=== PATIENT | male | born 1945 | race Caucasian/White ===

== ENCOUNTER 2018-02-07 18:30 | Observation (INO) | payer OTHER ==
[2018-02-07] MEDS ORDERED: ALBUTEROL 2.5 MG/3 ML NEB SOL ONE (19:16)
[2018-02-07] MEDS ORDERED: FUROSEMIDE 100 MG/10 ML VIAL IV ONE (19:16)
[2018-02-07 19:39] LABS: Absolute Lymphocytes (CBC) 0.6 K/uL (0.7-4.9); Absolute Monocytes 0.6 K/uL (0.1-1.3); Absolute Neutrophil 6.5 K/uL (1.8-8.0); Basophils % 0.3 % (0-1.3); Eosinophils % 2.5 % (0-4.4); Hematocrit 34.5 % (39.6-49.0); Lymphocytes % 7.3 % (15.3-44.8); MCH 26.7 pg (27.0-35.0); MCV 81.3 fL (80-100); MPV 8.6 fL (7.6-11.3); RBC Red Blood Cell Count 4.25 M/uL (4.33-5.43)
[2018-02-07 19:50] LABS: Protime INR 1.11
[2018-02-07 19:55] LABS: Bicarbonate 25 mEq/L (21-31); Glucose Level 120 mg/dL (65-120); Potassium 4.1 mEq/L (3.6-5.0); Sodium Level 135 mEq/L (135-145)
[2018-02-07 20:02] LABS: ALT/SGPT 18 IU/L (10-60); AST/SGOT 20 IU/L (10-42); Albumin 3.9 g/dL (3.2-5.5); Alkaline Phosphatase 823 IU/L (42-121); BUN Blood Urea Nitrogen 14 mg/dL (6-20); Bilirubin Direct 0.2 mg/dL (0-0.2); Bilirubin Total 0.8 mg/dL (0.3-1.2); Protein, Total 7.7 g/dL (6.0-8.3)
--- NOTE | 2018-02-07 20:29 | RAD REPORT ---
EXAM DESCRIPTION: VAS - Extrem Venous W Compress Richard - 02/07/2018 8:18 pm CLINICAL HISTORY: Leg pain and swelling COMPARISON: None. TECHNIQUE: Real-time sonographic evaluation of the bilateral lower extremity deep venous systems was performed. FINDINGS: Normal compressibility, flow augmentation, phasic flow and spontaneous flow are identified in the left and right lower extremity deep venous systems. No intraluminal filling defects seen. IMPRESSION: No DVT in either lower extremity.
--- NOTE | 2018-02-07 20:52 | EDPHYS ---
Physician Documentation [facility] Name: Frank Abernathy Age: 72 yrs Sex: Male : 1945 Arrival Date: 02/07/2018 Time: 18:33 Bed 5 Private MD: Unknown, Unknown ED Physician Antione Contreras HPI: 02/07 20:43 This 72 yrs old Male presents to ER via Wheelchair with complaints of Chest jr8 Pain, Shortness Of Breath. 20:43 Patient stated that he has had chest tightness that started yesterday. Worsening of jr8 shortness of breath and dyspnea on exertion. Stated that he has also noted bilateral erythema to lower legs with tenderness . Severity of symptoms: At their worst the symptoms were moderate in the emergency department the symptoms are unchanged. The patient has not experienced similar symptoms in the past. The patient has not recently seen a physician. Historical: - Allergies: 18:40 Amoxicillin; sv 18:40 Zithromax; sv - Home Meds: 19:31 amlodipine 10 mg tab 1 tab once daily [Active]; Ginna Aspirin 81mg Oral [Active]; ak1 carvedilol 25 mg Oral tab 1 tab three times a day [Active]; clopidogrel 75 mg Oral tab 1 tab once daily [Active]; lisinopril 40 mg Oral tab 1 tab once daily [Active]; fluoxetine 40 mg Oral cap 1 cap once daily [Active]; magnesium oxide 400 mg Oral cap daily [Active]; furosemide 80 mg oral tab once daily [Active]; fluticasone 50 mcg/actuation nasal spsn as needed [Active]; atorvastatin 80 mg Oral tab 1 tab once daily [Active]; montelukast 10 mg oral tab [Active]; Fluocinolone Acetonide Topical [Active]; Triamcinolone Acetonide Topical [Active]; Symbicort 160-4.5 mcg/actuation inhalation HFAA 2 puffs 2 times per day [Active]; ranitidine HCl 300 mg Oral tab 1 tab 2 times per day [Active]; - PMHx: 18:40 Anemia; CAD; Chronic Kidney Disease - Stage 3; COPD; Depression; Diabetes - NIDDM; sv GERD; Hyperlipidemia; Hypertension; lymphedema; Myocardial infarction; Prostate Cancer; Sleep Apnea; - Immunization history:: Adult Immunizations up to date. - Social history:: Smoking status: Patient/guardian denies using tobacco. - Ebola Screening: : No symptoms or risks identified at this time. ROS: 20:43 Eyes: Negative for injury, pain, redness, and discharge, ENT: Negative for injury, jr8 pain, and discharge, Neck: Negative for injury, pain, and swelling, Abdomen/GI: Negative for abdominal pain, nausea, vomiting, diarrhea, and constipation, Back: Negative for injury and pain, MS/Extremity: Negative for injury and deformity, Neuro: Negative for headache, weakness, numbness, tingling, and seizure. 20:43 Cardiovascular: Positive for chest pain, edema, Negative for orthopnea, palpitations, paroxysmal nocturnal dyspnea. 20:43 Respiratory: Positive for cough, dyspnea on exertion, shortness of breath. 20:43 Skin: Positive for erythema, of the right leg and left leg. Exam: 20:43 Eyes: Pupils equal round and reactive to light, extra-ocular motions intact. Lids and jr8 lashes normal. Conjunctiva and sclera are non-icteric and not injected. Cornea within normal limits. Periorbital areas with no swelling, redness, or edema. ENT: Nares patent. No nasal discharge, no septal abnormalities noted. Tympanic membranes are normal and external auditory canals are clear. Oropharynx with no redness, swelling, or masses, exudates, or evidence of obstruction, uvula midline. Mucous membranes moist. Neck: Trachea midline, no thyromegaly or masses palpated, and no cervical lymphadenopathy. Supple, full range of motion without nuchal rigidity, or vertebral point tenderness. No Meningismus. Cardiovascular: Regular rate and rhythm with a normal S1 and S2. No gallops, murmurs, or rubs. Normal PMI, no JVD. No pulse deficits. Abdomen/GI: Soft, non-tender, with normal bowel sounds. No distension or tympany. No guarding or rebound. No evidence of tenderness throughout. Back: No spinal tenderness. No costovertebral tenderness. Full range of motion. Neuro: Awake and alert, GCS 15, oriented to person, place, time, and situation. Cranial nerves II-XII grossly intact. Motor strength 5/5 in all extremities. Sensory grossly intact. Cerebellar exam normal. Normal gait. 20:43 Respiratory: the patient does not display signs of respiratory distress, Respirations: tachypnea, Breath sounds: rales, that are moderate, are located in both bases. 20:43 Musculoskeletal/extremity: ROM: intact in all extremities, Circulation is intact in all extremities. Sensation intact. Bilateral erythema and warmth with tenderness and swelling noted. Worse on right then left . 20:43 Skin: cellulitis, erythema/cellulitis noted to bilateral lower legs. Greater on right then left. Vital Signs: 18:40 BP 175 / 86; Pulse 99; Resp 26; Temp 99.8; Pulse Ox 91% ; Weight 129.73 kg; Height 5 sv ft. 8 in. (172.72 cm); 22:01 BP 150 / 80; Pulse 68; Resp 18; Pulse Ox 99% on R/A; tl2 22:17 BP 140 / 69; Pulse 73; Resp 18; Pulse Ox 100% on 2 lpm NC; tl2 02/08 00:01 BP 128 / 70; Pulse 65; Resp 18; Temp 98.5; Pulse Ox 98% on 2 lpm NC; tl2 02/07 18:40 Body Mass Index 43.49 (129.73 kg, 172.72 cm) sv 02/07 18:40 Pt placed on O2 \T\ 2L per NC. sv MDM: 18:45 Patient medically screened. jr8 20:43 Differential Diagnosis cellulitis, lymphedema, CHF, pneumonia, MN, DVT, PE . Data jr8 reviewed: vital signs, nurses notes, lab test result(s), EKG, radiologic studies, plain films, and as a result, I will admit patient. Data interpreted: Pulse oximetry: on 2L(s) per nasal canula, is 91 %. Interpretation: borderline. Counseling: I had a detailed discussion with the patient and/or guardian regarding: the historical points, exam findings, and any diagnostic results supporting the discharge/admit diagnosis, lab results, radiology results, the need for further work-up and treatment in the hospital. Physician consultation: Riley Cornell MD was called at 20:49, was contacted at 20:49, regarding admission, to the telemetry unit. consult, patient's condition, and will see patient. 02/07 19:03 Order name: Basic Metabolic Panel; Complete Time: 20:07 [facility] 02/07 19:03 Order name: Blood Culture Adult (2) [facility] 02/07 19:03 Order name: BNP; Complete Time: 19:59 02/07 19:03 Order name: CBC with Diff; Complete Time: 19:53 02/07 19:03 Order name: LFT's; Complete Time: 20:07 02/07 19:03 Order name: Procalcitonin; Complete Time: 20:33 02/07 19:03 Order name: Protime (+inr); Complete Time: 19:53 02/07 19:03 Order name: Troponin (emerg Dept Use Only); Complete Time: 19:59 02/07 19:03 Order name: Chest Single View XRAY; Complete Time: 23:14 02/07 19:03 Order name: US Extremity Venous W Compression Richard; Complete Time: 20:33 02/07 21:20 Order name: Urine Dipstick--Ancillary (enter results) eb 02/07 21:24 Order name: Urine Dipstick-Ancillary; Complete Time: 21:25 EDMS 02/07 18:42 Order name: EKG; Complete Time: 18:42 sv 02/07 18:42 Order name: EKG - Nurse/Tech; Complete Time: 19:12 sv 02/07 19:03 Order name: Cardiac monitoring; Complete Time: 19:12 02/07 19:03 Order name: IV Saline Lock - Large Bore; Complete Time: 19:12 02/07 19:03 Order name: Labs collected and sent; Complete Time: 19:12 02/07 19:03 Order name: O2 Per Protocol; Complete Time: 19:12 02/07 19:03 Order name: O2 Sat Monitoring; Complete Time: 19:12 02/07 19:03 Order name: Urine Dipstick-Ancillary (obtain specimen); Complete Time: 21:10 02/07 19:03 Order name: Accucheck; Complete Time: 19:30 Administered Medications: 19:30 Drug: Albuterol 2.5 mg Route: Inhalation; tl2 19:30 Drug: Lasix 60 mg Route: IVP; Site: right antecubital; 2 02/08 00:33 Follow up: Response: No adverse reaction; Marked relief of symptoms 02/07 21:09 Drug: LevaQUIN 500 mg Volume: 100 ml; Route: IVPB; Infused Over: 60 mins; Site: right tl2 antecubital; 02/08 00:33 Follow up: IV Status: Completed infusion tl2 02/07 21:10 Drug: Albuterol 2.5 mg Route: Inhalation; tl2 22:17 Drug: vancoMYCIN 1 grams Route: IVPB; Infused Over: 2 hrs; Site: right antecubital; tl2 02/08 00:33 Follow up: IV Status: Completed infusion tl2 Point of Care Testing: Blood Glucose: 02/07 19:15 Blood Glucose: 131 mg/dL; tl2 Ranges: Critical Glucose Levels:Adult <50 mg/dl or >400 mg/dl <40 mg/dl or >180 mg/dl Disposition: 02/08 07:17 Co-signature as Attending Physician, Antione Contreras MD I agree with the assessment and norma plan of care. Disposition: 02/07/18 20:50 Hospitalization ordered by Riley Cornell for Inpatient Admission. Preliminary diagnosis are Acute combined systolic (congestive) and diastolic (congestive) heart failure, Cellulitis of right lower limb, Cellulitis of left lower limb. - Bed requested for Telemetry/MedSurg (Inpatient). - Status is Inpatient Admission. tl2 - Condition is Fair. - Problem is new. - Symptoms have improved. UTI on Admission? No Signatures: Dispatcher [employer] EDGisel Maria RN RN Mickie Lynch RN RN dw Anderson, Corey, MD MD cha Roszak, Josh, PA PA jr8 Olivia Garrido RN RN ak1 Nicki Collado RN RN tl2 Corrections: (The following items were deleted from the chart) 02/07 21:11 20:50 Hospitalization Ordered by Riley Cornell MD for Inpatient Admission. Preliminary diagnosis is Acute combined systolic (congestive) and diastolic (congestive) heart failure; Cellulitis of right lower limb; Cellulitis of left lower limb. Bed requested for Telemetry/MedSurg (Inpatient). Status is Inpatient Admission. Condition is Fair. Problem is new. Symptoms have improved. UTI on Admission? No. jr8 02/08 00:34 02/07 21:11 02/07/2018 20:50 Hospitalization Ordered by Riley Cornell MD for Inpatient tl2 Admission. Preliminary diagnosis is Acute combined systolic (congestive) and diastolic (congestive) heart failure; Cellulitis of right lower limb; Cellulitis of left lower limb. Bed requested for Telemetry/MedSurg (Inpatient). Status is Inpatient Admission. Condition is Fair. Problem is new. Symptoms have improved. UTI on Admission? No. dw
--- NOTE | 2018-02-07 20:52 | ER ---
Nurse's Notes [facility] Name: Frank Abernathy Age: 72 yrs Sex: Male : 1945 Arrival Date: 02/07/2018 Time: 18:33 Bed 5 Private MD: Unknown, Unknown Diagnosis: Acute combined systolic (congestive) and diastolic (congestive) heart failure;Cellulitis of right lower limb;Cellulitis of left lower limb Presentation: 02/07 18:36 Presenting complaint: Patient states: chest pain, SOB, RLE pain since this morning. Pt sv reports increased SOB since this morning. Reports drowsiness. Transition of care: patient was not received from another setting of care. Onset of symptoms was February 07, 2018. Care prior to arrival: None. 18:36 Method Of Arrival: Wheelchair sv 18:36 Acuity: CHRISTI 2 sv 19:20 Risk Assessment: Do you want to hurt yourself or someone else? Patient reports no ak1 desire to harm self or others. Initial Sepsis Screen: Does the patient meet any 2 criteria? No. Patient's initial sepsis screen is negative. Does the patient have a suspected source of infection? No. Patient's initial sepsis screen is negative. Historical: - Allergies: 18:40 Amoxicillin; sv 18:40 Zithromax; sv - Home Meds: 19:31 amlodipine 10 mg tab 1 tab once daily [Active]; Ginna Aspirin 81mg Oral [Active]; ak1 carvedilol 25 mg Oral tab 1 tab three times a day [Active]; clopidogrel 75 mg Oral tab 1 tab once daily [Active]; lisinopril 40 mg Oral tab 1 tab once daily [Active]; fluoxetine 40 mg Oral cap 1 cap once daily [Active]; magnesium oxide 400 mg Oral cap daily [Active]; furosemide 80 mg oral tab once daily [Active]; fluticasone 50 mcg/actuation nasal spsn as needed [Active]; atorvastatin 80 mg Oral tab 1 tab once daily [Active]; montelukast 10 mg oral tab [Active]; Fluocinolone Acetonide Topical [Active]; Triamcinolone Acetonide Topical [Active]; Symbicort 160-4.5 mcg/actuation inhalation HFAA 2 puffs 2 times per day [Active]; ranitidine HCl 300 mg Oral tab 1 tab 2 times per day [Active]; - PMHx: 18:40 Anemia; CAD; Chronic Kidney Disease - Stage 3; COPD; Depression; Diabetes - NIDDM; sv GERD; Hyperlipidemia; Hypertension; lymphedema; Myocardial infarction; Prostate Cancer; Sleep Apnea; - Immunization history:: Adult Immunizations up to date. - Social history:: Smoking status: Patient/guardian denies using tobacco. - Ebola Screening: : No symptoms or risks identified at this time. Screenin:20 Abuse screen: Denies threats or abuse. Denies injuries from another. Nutritional ak1 screening: No deficits noted. Tuberculosis screening: No symptoms or risk factors identified. Fall Risk None identified. Assessment: 19:19 Reassessment: Patient appears in no apparent distress at this time. No changes from ak1 previously documented assessment. Patient and/or family updated on plan of care and expected duration. Pain level reassessed. Patient is alert, oriented x 3, equal unlabored respirations, skin warm/dry/pink. no resp distress noted at this time. pt A\T\OX4. General: Appears in no apparent distress. Behavior is calm, cooperative. Pain: Complains of pain in right leg and left leg Pain does not radiate. Pain began. Neuro: No deficits noted. Cardiovascular: Reports chest pain. Respiratory: Reports shortness of breath. GI: No signs and/or symptoms were reported involving the gastrointestinal system. : No signs and/or symptoms were reported regarding the genitourinary system. EENT: No signs and/or symptoms were reported regarding the EENT system. Derm: redness, swelling and taut skin to bilateral lower legs. Musculoskeletal: No signs and/or symptoms reported regarding the musculoskeletal system. 21:00 Reassessment: Patient appears in no apparent distress at this time. No changes from ak1 previously documented assessment. Patient and/or family updated on plan of care and expected duration. Pain level reassessed. Patient is alert, oriented x 3, equal unlabored respirations, skin warm/dry/pink. 23:35 Reassessment: Patient appears in no apparent distress at this time. No changes from ak1 previously documented assessment. Patient and/or family updated on plan of care and expected duration. Pain level reassessed. Patient is alert, oriented x 3, equal unlabored respirations, skin warm/dry/pink. 02/08 00:31 Reassessment: Patient appears in no apparent distress at this time. Patient and/or tl2 family updated on plan of care and expected duration. Pain level reassessed. Patient is alert, oriented x 3, equal unlabored respirations, skin warm/dry/pink. Pt stable and ready for transport to floor. Vital Signs: 02/07 18:40 BP 175 / 86; Pulse 99; Resp 26; Temp 99.8; Pulse Ox 91% ; Weight 129.73 kg; Height 5 sv ft. 8 in. (172.72 cm); 22:01 BP 150 / 80; Pulse 68; Resp 18; Pulse Ox 99% on R/A; tl2 22:17 BP 140 / 69; Pulse 73; Resp 18; Pulse Ox 100% on 2 lpm NC; tl2 02/08 00:01 BP 128 / 70; Pulse 65; Resp 18; Temp 98.5; Pulse Ox 98% on 2 lpm NC; tl2 02/07 18:40 Body Mass Index 43.49 (129.73 kg, 172.72 cm) sv 02/07 18:40 Pt placed on O2 \T\ 2L per NC. sv ED Course: 18:33 Patient arrived in ED. mr 18:34 Unknown, Unknown is Private Physician. mr 18:36 Patient's name was called from ER lobby. No response. sv 18:39 Triage completed. sv 18:41 Arm band placed on left wrist. Patient placed in an exam room, on a stretcher, on sv oxygen. 18:44 [facility] jr8 18:44 Antione Contreras MD is Attending Physician. jr8 19:12 Olivia Garrido, RN is Primary Nurse. ak1 19:21 Patient has correct armband on for positive identification. Bed in low position. Call ak1 light in reach. Side rails up X2. Adult w/ patient. case monitor on. Pulse ox on. NIBP on. 19:22 Oxygen administration via nasal cannula \T\ 2L/min. ak1 19:30 X-ray completed. Portable x-ray completed in exam room. Patient tolerated procedure mh1 well. 19:31 Chest Single View XRAY In Process Unspecified. EDMS 20:18 US Extremity Venous W Compression Richard In Process Unspecified. EDMS 20:50 Riley Cornell MD is Hospitalizing Provider. jr8 23:36 Inserted saline lock: 20 gauge in right antecubital area, using aseptic technique. ak1 ,using aseptic technique. placed by Estela Diaz RN during day shift. 23:36 No provider procedures requiring assistance completed. Patient admitted, IV remains in ak1 place. Administered Medications: 19:30 Drug: Albuterol 2.5 mg Route: Inhalation; tl2 19:30 Drug: Lasix 60 mg Route: IVP; Site: right antecubital; tl2 02/08 00:33 Follow up: Response: No adverse reaction; Marked relief of symptoms tl2 02/07 21:09 Drug: LevaQUIN 500 mg Volume: 100 ml; Route: IVPB; Infused Over: 60 mins; Site: right tl2 antecubital; 02/08 00:33 Follow up: IV Status: Completed infusion tl2 02/07 21:10 Drug: Albuterol 2.5 mg Route: Inhalation; tl2 22:17 Drug: vancoMYCIN 1 grams Route: IVPB; Infused Over: 2 hrs; Site: right antecubital; tl2 02/08 00:33 Follow up: IV Status: Completed infusion tl2 Point of Care Testing: Blood Glucose: 02/07 19:15 Blood Glucose: 131 mg/dL; tl2 Ranges: Output: 21:43 Urine: 1500ml (Voided); Total: 1500ml. tl2 22:12 Urine: 680ml (Voided); Total: 2180ml. tl2 23:39 Urine: 950ml (Voided); Total: 3130ml. tl2 Outcome: 20:50 Decision to Hospitalize by Provider. jr8 02/08 00:31 Admitted to Med/surg accompanied by nurse, family with patient, via wheelchair, room tl2 206, with oxygen, with chart, Report called to WILLIAM Alonso Condition: stable Discharge instructions given to patient, family, Instructed on the need for admit. 00:34 Patient left the ED. tl2 Signatures: Dispatcher [employer] EDGisel Maria, Melissa Flores RN EstebanMadhavi [facility] Clyde Daniel PA PA jr8 Olivia Garrido RN RN ak1 Nicki Collado RN RN tl2
[2018-02-07] MEDS ORDERED: VANCOMYCIN 1 GM/250 ML BAG ONE (20:56)
[2018-02-07] MEDS ORDERED: Levofloxacin500mg IV 500 MG/100 ML BAG IV ONE (20:58)
[2018-02-07 21:23] LABS: Urine Blood TRACE (NEG); Urine Glucose NEGATIVE (NEG); Urine Protein NEGATIVE (NEG); Urine Specific Gravity 1.015 (1.005-1.030)
--- NOTE | 2018-02-07 22:28 | P.HP ---
Certification for Inpatient With expected LOS: >2 Midnights Practitioner: I am a practitioner with admitting privileges, knowledge of patient current condition, hospital course, and medical plan of care. Services: Services provided to patient in accordance with Admission requirements found in Title 42 Section 412.3 of the Code of Federal Regulations Patient History Date of Service: 02/07/18 Reason for admission: CHF exacerbation History of Present Illness: Mr Abernathy is a 72 years old male with history of CAD, COPD, DM II, prostate cancer, chronic diastolic CHF, who start about 2 weeks ago with increasing lower extremity edema. He as also noticing more SOB than usual. He was also complaining of chest tightness with movements, improving when he rest. No history of fever or chills. He also has had some redness, and pain in his legs, more on the right than the left. Lab work shows normal WBC count, procalcitonin is negative, isolated phos alk elevation. CXR remarkable for venous congestion consistent with CHF, O2 sat 91% on RA. Trop I negative, EKG RBBB, no ST abnormalities. Allergies amoxicillin Allergy (Verified 01/15/16 01:01) Unknown azithromycin [From Zithromax] Allergy (Verified 01/15/16 01:01) Unknown Penicillins Allergy (Verified 03/11/16 14:31) Anaphylaxis Home Medications: Albuterol Sulfate [Proair Hfa] 1 puff IH SEECOM PRN 01/14/16 Aspirin [Ginna Chewable Aspirin] 81 mg PO DAILY 01/14/16 Atorvastatin Calcium [Lipitor] 80 mg PO BEDTIME 01/14/16 Cetirizine HCl [All Day Allergy] 10 mg PO DAILY 01/14/16 Fluoxetine HCl [Prozac] 40 mg PO DAILY 01/14/16 Furosemide [Lasix*] 40 mg PO DAILY 01/14/16 Lisinopril [Prinivil*] 20 mg PO DAILY #30 tab 02/10/16 Levalbuterol HCl [Xopenex] 1 ml IN PRN PRN 03/11/16 Magnesium Oxide [Magnesium] 1 cap PO DAILY 03/11/16 - Past Medical/Surgical History Diabetic: No -: COPD -: Asthma -: HTN -: Lymphedema -: CHF -: Heart Attack -: Cellulitis -: Irregular Heartbeat -: Prostate Cancer (Radiation) -: Cardiac Stents - Family History Family History: Reviewed- Non-Contributory - Social History Alcohol use: No CD- Drugs: No Caffeine use: No Place of Residence: Home Review of Systems 10-point ROS is otherwise unremarkable Physical Examination - Physical Exam General: Alert, In no apparent distress HEENT: Atraumatic, PERRLA, Mucous membr. moist/pink, EOMI, Sclerae nonicteric Neck: Supple, 2+ carotid pulse no bruit, No LAD, Without JVD or thyroid abnormality Respiratory: Diminished, Crackles/rales (bibasilar rales) Cardiovascular: Normal S1 S2, No gallops Gastrointestinal: Normal bowel sounds, No tenderness Musculoskeletal: Swelling, Erythema, Tenderness Integumentary: No rashes, Erythema, Warmth (Lower extremities, more on the right than left) Neurological: Normal gait, Normal speech, Normal strength at 5/5 x4 extr, Normal tone, Normal affect Lymphatics: No axilla or inguinal lymphadenopathy - Studies Laboratory Data (last 24 hrs) 02/07/18 19:10: PT 13.1 H, INR 1.11 02/07/18 19:10: WBC 7.9, Hgb 11.3 L, Hct 34.5 L, Plt Count 193 02/07/18 19:10: B-Natriuretic Peptide 663 H 02/07/18 19:10: Sodium 135, Potassium 4.1, BUN 14, Creatinine 0.81, Glucose 120 , Total Bilirubin 0.8, AST 20, ALT 18, Alkaline Phosphatase 823 H Assessment and Plan - Problems (Diagnosis) (1) Acute on chronic diastolic CHF (congestive heart failure) Current Visit: Yes Status: Acute (2) CAD (coronary artery disease) Current Visit: No Status: Acute Qualifiers: Coronary Disease-Associated Artery/Lesion type: [place] artery Associated angina: with unspecified angina (3) Hypertension Onset Date: 02/10/16 Current Visit: No Status: Acute Qualifiers: Hypertension type: essential hypertension Qualified Code(s): I10 - Essential (primary) hypertension (4) Cellulitis Current Visit: Yes Status: Acute Qualifiers: Site of cellulitis: extremity Site of cellulitis of extremity: lower extremity Laterality: right Qualified Code(s): L03.115 - Cellulitis of right lower limb (5) Dermatitis Onset Date: 01/15/16 Current Visit: No Status: Acute - Plan Mr Abernathy will be admitted to the hospital CHF acute on chronic diastolic CHF, and lower extremity cellulitis. Will order IV Lasix, ECHO, cardiology consult. Start empiric antibiotics. - Advance Directives Does patient have a Living Will: Yes Does patient have a Durable POA for Healthcare: Yes - Code Status/Comfort Care Code Status Assessed: Yes Code Status: Full Code
--- NOTE | 2018-02-07 23:13 | RAD REPORT ---
EXAM DESCRIPTION: RAD - Chest Single View - 02/07/2018 7:54 pm CLINICAL HISTORY: Shortness of breath COMPARISON: Knee 2016 TECHNIQUE: AP portable chest image was obtained 1924 hours . FINDINGS: Patchy alveolar opacities are scattered throughout the lung olson. Cardiomegaly is presen t. Vasculature is increased in prominence. No measurable pleural effusion and no pneumothorax. Bone a ssessment is limited. There is suggestion of an overall increase in bone density. This is difficult t o assess on portable imaging. No acute aortic findings suspected. IMPRESSION: Cardiomegaly, vascular engorgement and lung parenchymal opacification suggesting failure or volume overload. Superimposed or concurrent pneumonia would be possible as well. Overall increase in bone density is apparent though may be artifact of portable technique. Dedicated two-view chest examination would be recommended when tolerable by the patient.
[2018-02-08] MEDS ORDERED: FLUOCINONIDE 0.05% CREAM 30GM TOP PRN (00:14)
[2018-02-08] MEDS ORDERED: ACETAMINOPHEN 500 MG TAB PO PRN (00:14)
[2018-02-08] MEDS ORDERED: ONDANSETRON 4 MG/2 ML VIAL IV PRN (00:14)
[2018-02-08] MEDS ORDERED: Levofloxacin 750mg IV 750 MG/150 ML BAG IV SCH (00:14)
[2018-02-08 01:57] LABS: Urine Appearance CLEAR; Urine Bilirubin NEGATIVE (NEG); Urine Blood TRACE (NEG); Urine Color YELLOW; Urine Glucose NEGATIVE (NEG); Urine Protein NEGATIVE (NEG); Urine Urobilinogen 0.2 mg/dL (0.2-1.0)
[2018-02-08 02:07] LABS: Urine Microscopic Reflex ORDER UMIC
[2018-02-08 03:26] LABS: Urine Bacteria <20 /HPF (NONE SEEN); Urine Culture Reflex Order NOT NEEDED
[2018-02-08] MEDS ORDERED: VANCOMYCIN 1 GM in NA CHLORIDE 0.9% 500 ML IVPB ONE (04:00)
[2018-02-08] MEDS ORDERED: VANCOMYCIN 1 GM/250 ML BAG ONE (04:06)
[2018-02-08 05:54] LABS: Absolute Lymphocytes (CBC) 0.7 K/uL (0.7-4.9); Absolute Monocytes 0.6 K/uL (0.1-1.3); Absolute Neutrophil 3.9 K/uL (1.8-8.0); Basophils % 0.4 % (0-1.3); Eosinophils % 3.3 % (0-4.4); Hematocrit 30.3 % (39.6-49.0); Lymphocytes % 12.7 % (15.3-44.8); MCH 26.3 pg (27.0-35.0); MCV 81.6 fL (80-100); MPV 8.4 fL (7.6-11.3); Monocytes % 11.5 % (3.3-12.3); RBC Red Blood Cell Count 3.71 M/uL (4.33-5.43)
[2018-02-08 06:07] LABS: BUN Blood Urea Nitrogen 12 mg/dL (6-20); Bicarbonate 28 mEq/L (21-31); Glucose Level 86 mg/dL (65-120); Potassium 3.9 mEq/L (3.6-5.0); Sodium Level 138 mEq/L (135-145)
[2018-02-08] MEDS: INSULIN -REGULAR HUMAN 50 UNIT/0.5 ML ML SQ SCH ×4 (07:30→21:00)
--- NOTE | 2018-02-08 07:44 | EKG ---
Test Date: 2018-02-07 Test Time: 18:47:21 Head Pastry Chef: JOHANA MEASUREMENT RESULTS: Intervals: Rate: 72 HI: 294 QRSD: 146 QT: 450 QTc: 492 [place]: P: 61 HI: 294 QRS: -52 T: 79 INTERPRETIVE STATEMENTS: Sinus rhythm with marked sinus arrhythmia with 1st degree AV block Left axis deviation Right bundle branch block Possible Lateral infarct, age undetermined Inferior infarct, age undetermined Abnormal ECG Compared to ECG 02/09/2016 07:39:22 Left-axis deviation now present Right bundle-branch block now present Ventricular premature complex(es) no longer present Electronically Signed On 02-08-18 07:43:40 CDT by Heladio Hernandez
[2018-02-08 08:22] LABS: A1c Component 0.39 mg/dL; Hemoglobin A1c 5.9 % (4-6.0)
[2018-02-08] MEDS: FUROSEMIDE 40 MG/4 ML VIAL IV SCH ×2 (09:02→16:00)
[2018-02-08] MEDS ORDERED: LEVALBUTEROL 1.25 MG/3 ML NEB IH PRN (09:45)
--- NOTE | 2018-02-08 12:18 | ECHO ---
HEIGHT: 5 ft 8 in WEIGHT: 264 lb 0 oz DATE OF STUDY: 02/08/[address]: Riley Baez MD 2-DIMENSIONAL: YES M.MODE: YES DOPPLER: YES COLOR FLOW: YES TDS: PORTABLE: DEFINITY: BUBBLE STUDY: DIAGNOSIS: CONGESTIVE HEART FAILURE CARDIAC HISTORY: CATHERIZATION: SURGERY: PROSTHETIC VALVE: PACEMAKER: MEASUREMENTS (cm) DIASTOLIC (NORMALS) SYSTOLIC (NORMALS) IVSd 1.1 (0.6-1.2) LA Diam 3.9 (1.9-4.0) LVEF 50-55% LVIDd 6.2 (3.5-5.7) LVIDs 3.9 (2.0-3.5) %FS 37% LVPWd 1.1 (0.6-1.2) Ao Diam 3.3 (2.0-3.7) 2 DIMENSIONAL ASSESSMENT: RIGHT ATRIUM: NORMAL LEFT ATRIUM: DILATED RIGHT VENTRICLE: NORMAL LEFT VENTRICLE: DILATED TRICUSPID VALVE: NORMAL MITRAL VALVE: NORMAL PULMONIC VALVE: NORMAL AORTIC VALVE: NORMAL PERICARDIAL EFFUSION: NONE AORTIC ROOT: NORMAL LEFT VENTRICULAR WALL MOTION: NORMAL DOPPLER/COLOR FLOW: MILD MITRAL REGURGITATION, TRICUSPID REGURGITATION AND AORTIC REGURGITATION. MILD PULMONARY HYPERTENSION AND ESTIMATED RIGHT VENTRICULAR SYSTOLIC PRESSURE 41mmHg COMMENTS: NORMAL LEFT VENTRICULAR EJECTION FRACTION. NORMAL LEFT ATRIUM AND LEFT VENTRICULAR. MILD AORTIC REGURGITATION, MITRAL REGURGITATION AND TRICUSPID REGURGITATION. MILD PULMONARY HYPERTENSION. TECHNOLOGIST: VLADIMIR JOHN
[2018-02-08] MEDS: CARVEDILOL 25 MG TAB PO SCH ×2 (13:13→21:07)
[2018-02-08] MEDS: VANCOMYCIN 2 GM in NA CHLORIDE 0.9% 500 ML IVPB SCH (15:54)
--- NOTE | 2018-02-08 16:07 | CON ---
History Of Present Illness: Mr. Abernathy, 72, came to the hospital because of progressive shortness o f breath, progressive weight gain, development of edema, and increasing abdominal girth. Since he ortega s been here in the hospital getting diuretics, he has improved. He feels just about back to normal. He has chronic diastolic congestive heart failure. All of his ejection fractions have been normal. Does not have significant valvular heart disease, but he has severe diastolic dysfunction. He is un vanesa the care of Dr. Davies in [place] and seems to do a good job taking his medicines. Past Medical History: He is treated for hypertension, congestive heart failure, and dyslipidemia. Blaine clark also has COPD. Social History: He does not smoke, but he did in the past. He uses no tobacco. Rare alcohol. Past Surgical History: More than 20 years ago, he had a stent put in his heart when Dr. Keke sharifs t met him. Allergies: HE IS ALLERGIC TO AMOXICILLIN, AZITHROMYCIN, AND ALL OTHER PENICILLINS. Outpatient Medications: Albuterol, furosemide, Prozac, cetirizine, atorvastatin 80, aspirin 81, rosana nopril 20, magnesium oxide, Xopenex nebulizer treatments, amlodipine 10, Coreg 25 t.i.d. It says Layne vix 300 daily, but I think that is probably misprint. I think he probably takes 75 mg daily. Zantac 300 mg b.i.d., and Singulair. Physical Examination: General: He is 5 feet 8 inches, 264 pounds. HEENT: Normal. Lungs: No crackles or wheeze. Heart: Reveals a regular rate and rhythm. There is an S4 gallop. No significant murmur. Abdomen: Soft. EXTREMITIES: 2 to 3+ edema. There is mild cellulitis on the right machado, which seems to be improving . Impression: The patient has chronic congestive heart failure, out of control. I think he has poor c oncept of sodium restriction. His diuretic dose is fairly low and I would suspect he needs a larger dose of Lasix than his own. He has a chronic anemia. B-natriuretic peptide of 663. I think after blaine clark is diuresed enough, he could be discharged and follow up with Dr. Davies for a chronic problem out of control, probably because of higher sodium intake and lower diuretic use than would be ideal. SH/MODL Voice ID: [id number] Report ID: [id number]
--- NOTE | 2018-02-08 17:01 | PN ---
Date of Progress Note: 02/08/2018 Subjective: The patient seen and examined, chart reviewed, and case discussed with RN. The patient states his shortness of breath has improved. Still has leg swelling and erythema. Review of Systems: Negative except above. Medications: Reviewed. Objective: Vital Signs: Temperature 98.4, heart rate 68, blood pressure 147/67, respirations 18, an d O2 98% on 2 L via nasal cannula. General: awake, alert, oriented x3, in mild distress. Elderly male, ill-appearing, morbidly obese, BMI 40. CV: S1, S2. No murmurs. Regular rate and rhythm. Peripheral pulses present bilaterally. Respiratory: diminished breath sounds. Some crackles heard. No wheezing. No stridor. No use of a ccessory muscles. Gastrointestinal: Abdomen is soft, nontender, nondistended. Positive bowel sounds. Extremities: No clubbing, cyanosis, 2+ edema bilaterally. Neurologic: Nonfocal. Skin: Blotchy erythema. Bilateral lower extremities warm to touch. Mild tenderness to palpation. Laboratory Data: Sodium 138, potassium 3.9, chloride 105, CO2 28, BUN 12, creatinine 0.78, and calci um 8.1. WBC 5.4, H and H 9.7, 30.3, platelets 183, and magnesium 2.2. Blood cultures pending. Dopp ler venous study showed no DVT in either leg. Chest x-ray shows cardiomegaly with vascular engorgeme nt, lung parenchymal opacification suggesting failure or volume overload. Assessment: 1.Acute on chronic diastolic heart failure. We will continue with congestive heart failure guidelin es, beta-emily, NORMA inhibitor, and continue with IV Lasix. We will monitor I's and O's. Strict 15 00 mL fluid restriction. Daily weights. 2.Cellulitis of bilateral lower extremities, right worse than left. We will Continue IV antibiotics . Follow up on cultures. White count normal. No fevers. 3.Essential hypertension. Resume home medications as appropriate. 4.Coronary artery disease, [place] artery and [place] heart without angina. 5.Acute dermatitis. 6.Chronic venous stasis. Plan: Continue current treatment. Obtain echocardiogram and Cardiology consultation. Follow up on cultures. /MODL Voice ID: [id number] Report ID: [id number]
[2018-02-08] MEDS ORDERED: LEVALBUTEROL IH PRN (17:47)
[2018-02-08] MEDS ORDERED: VENTOLIN IH PRN (18:00)
[2018-02-08] MEDS: ATORVASTATIN 80 MG TAB PO SCH (21:06)
[2018-02-08] MEDS: RANITIDINE 150 MG TABLET PO SCH (21:06)
[2018-02-08] MEDS: Levofloxacin 750mg IV 750 MG/150 ML BAG IV SCH (21:07)
[2018-02-09] MEDS: VANCOMYCIN 2 GM in NA CHLORIDE 0.9% 500 ML IVPB SCH ×2 (04:26→16:00)
[2018-02-09] MEDS: INSULIN -REGULAR HUMAN 50 UNIT/0.5 ML ML SQ SCH ×4 (07:30→21:00)
[2018-02-09] MEDS: RANITIDINE 150 MG TABLET PO SCH ×2 (08:19→21:40)
[2018-02-09] MEDS: MONTELUKAST 10 MG TAB PO SCH (08:19)
[2018-02-09] MEDS: FLUOXETINE 20 MG CAP PO SCH (08:20)
[2018-02-09] MEDS: CETIRIZINE HCL 5 MG TABLET PO SCH (08:20)
[2018-02-09] MEDS: CLOPIDOGREL 75 MG TABLET PO SCH (08:20)
[2018-02-09] MEDS: AMLODIPINE 10 MG TAB PO SCH (08:21)
[2018-02-09] MEDS: CARVEDILOL 25 MG TAB PO SCH ×3 (08:21→21:40)
[2018-02-09] MEDS: LISINOPRIL 20 MG TAB PO SCH (08:21)
[2018-02-09] MEDS: FUROSEMIDE 40 MG/4 ML VIAL IV SCH ×2 (08:22→16:06)
[2018-02-09] MEDS: ASPIRIN 81 MG CHEWABLE TABLET PO SCH (08:22)
[2018-02-09] MEDS ORDERED: CLOPIDOGREL BISULFATE 300 MG PO SCH (09:00)
--- NOTE | 2018-02-09 09:36 | RAD REPORT ---
EXAM DESCRIPTION: RAD - Chest Single View - 02/09/2018 9:07 am CLINICAL HISTORY: CHF COMPARISON: February 07 TECHNIQUE: AP portable chest image was obtained 0856 hours . FINDINGS: Lung volumes are normal. The lung parenchymal opacification remains. Heart size is upper n ormal. Vasculature is upper normal as well. Trachea is midline. No measurable pleural effusion and no pneumothorax. No acute aortic finding. There is an overall increase in skeletal density over what is typically encounter de. The patient has remote prostate cancer history. Current skeletal findings are concerning for bony metastatic disease . The patient has lung parenchymal pattern suggests a nodularity that could indicate numerous pulmona ry metastatic lesions rather than pneumonia or failure process. IMPRESSION: Abnormal skeletal density and abnormal lung parenchyma concerning for metastatic disease . Patient has no imaging here between July 2016 and the current admission imaging. Correlation is n eeded with any history of recurrent prostate carcinoma. Heart, vasculature and interstitial markings have shown some improvement.
--- NOTE | 2018-02-09 12:02 | PN ---
Date of Progress Note: 02/09/2018 Subjective: The patient seen and examined, chart reviewed, and case discussed with Dr. Hood. The patient states his breathing is fair. Lower extremity edema still present. Review of Systems: Negative except as above. Medications: Reviewed. Objective: Vital Signs: Temperature 98.3, heart rate 58, blood pressure 139/59 , respirations 16, and O2 98% on 2 L via nasal cannula. General: Awake, alert, oriented x3, in some mild distress due to shortness of breath, elderly male, ill-appearing, morbidly obese, BMI of 40. CV: S1, S2. Peripheral pulses present. Regular rate and rhythm. Peripheral pulses present diffusely. Respiratory: Diminished breath sounds. Some crackles heard. Gastrointestinal: Abdomen is soft, nontender, nondistended. Positive bowel sounds. Extremities: No clubbing, cyanosis. Diffuse lower extremity edema. Neurologic: Nonfocal. Laboratory Data: Pending. Glucose level 78. Chest x-ray shows abnormal skeletal density and abnormal lung parenchyma, concerning for metastatic disease. The patient has no imaging here between July 2016 and current admission imaging. Correlation is needed with any history of recurrent prostate carcinoma. Heart vasculature and interstitial markings have shown improvement. Personally reviewed. Echocardiogram shows EF of 50-55%, mild aortic regurg, mitral regurg, and tricuspid regurg. Mild pulmonary hypertension. Assessment And Plan: A 72-year-old male with; 1. Acute on chronic diastolic heart failure. Ejection fraction is 50-55%. Continue congestive heart failure guidelines with beta-emily, NORMA inhibitor. Continue IV Lasix. We will monitor I's and O's. Continue fluid restriction diet. Chest x-ray shows some improvement. Daily weight. 2. Bilateral lower extremity cellulitis, right worse than left. Continue IV antibiotic. Follow up on cultures. Currently no growth to date. 3. Essential hypertension, stable. 4. Abnormal bone structure on x-ray consistent with metastatic disease. We will obtain further details. We will check PSA level. The patient has history of remote prostate cancer. 5. Coronary artery disease, [place] artery and [place] heart without angina, stable. 6. Acute dermatitis. 7. Chronic venous stasis. 8. Gastrointestinal and deep venous thrombosis prophylaxis with PPI and will add Lovenox. ADDENDUM: Spoke with Dr. Austin pts oncologist. He does not feel CXR shows mets. Recommends Ct chest now and bone scan as out pt. Patient denies any musculoskeletal pain. /ANIA Voice ID: [id number] Report ID: [id number] MTDD
--- NOTE | 2018-02-09 15:13 | PN ---
Admitted on 02/07/2018. He was seen by Dr. Hernandez on 02/08/2018 for congestive heart failure. I saw the patient today on 02/09/2018. He is improving. As far as his breathing concerns, I did not dete ct any rales on his physical examination, but he still has 3+ pedal edema. He does not have a Bonner, but he is able to use the urinal without any difficulties. Denies any chest pain or fever or chills . His ejection fraction showed 50% to 55% on echo yesterday. We will continue diuresis, sodium rest riction, treatment for cellulitis. He has acute on chronic diastolic congestive heart failure. He c an go home probably tomorrow if it is okay with Dr. Kim. KOLTON/ANIA Voice ID: [id number] Report ID: [id number]
--- NOTE | 2018-02-09 15:28 | RAD REPORT ---
EXAM DESCRIPTION: CT - Thorax W/ Con - 02/09/2018 3:18 pm CLINICAL HISTORY: Abnormal chest film COMPARISON: Chest exam February 09 and February 07 TECHNIQUE: Dynamically enhanced 5 mm thick images of the chest were obtained during administration o f 100 mL non-ionic IV contrast. All CT scans are performed using dose optimization technique as appropriate and may include automated exposure control or mA/KV adjustment according to patient size. FINDINGS: Hazy ground-glass opacification is scattered throughout the lung olson. This would accoun t for the lung parenchymal opacification. No focal consolidation, mass or nodule identifiable. Ground -glass opacification is likely alveolar edema. Patient has cardiomegaly. Aorta and pulmonary arterial tree enhance normally. No pericardial effusion. No pleural thickening or pleural effusion. No pneumo thorax. No abnormal mediastinal or hilar mass or lymphadenopathy seen. Skeleton is grossly abnormal. There are innumerable sclerotic or blastic changes throughout the ribca ge, sternum and thoracic vertebrae. Clavicle, proximal humerus and scapula involvement as well. In a patient with prostate cancer history, this is most likely diffuse bony metastatic disease. IMPRESSION: Grossly abnormal skeleton suspicious for innumerable bony metastatic lesions in this pat ient with a prostate cancer history. Ground-glass opacification throughout the lung olson with cardiomegaly. This is believed to be alveo lar edema from failure/ volume overload. No lung metastatic nodule or focal infiltrate.
[2018-02-09] MEDS ORDERED: ENOXAPARIN 40 MG/0.4 ML SQ SCH (17:00)
[2018-02-09 19:39] VITALS: O2SAT 91
[2018-02-09] MEDS: Levofloxacin 750mg IV 750 MG/150 ML BAG IV SCH (21:40)
[2018-02-09] MEDS: ATORVASTATIN 80 MG TAB PO SCH (21:41)
[2018-02-10] MEDS: VANCOMYCIN 2 GM in NA CHLORIDE 0.9% 500 ML IVPB SCH (04:25)
[2018-02-10 05:42] LABS: Magnesium 2.1 mg/dL (1.8-2.5); Potassium 3.5 mEq/L (3.6-5.0)
[2018-02-10 05:57] VITALS: BMI 40.0
[2018-02-10] MEDS ORDERED: POTASSIUM 25 MEQ EFFERV TAB PO ONE (06:43)
[2018-02-10] MEDS: INSULIN -REGULAR HUMAN 50 UNIT/0.5 ML ML SQ SCH ×2 (07:30→11:30)
[2018-02-10 08:38] LABS: Potassium 3.7 mEq/L (3.6-5.0)
[2018-02-10] MEDS: MONTELUKAST 10 MG TAB PO SCH (10:08)
[2018-02-10] MEDS: CLOPIDOGREL 75 MG TABLET PO SCH (10:08)
[2018-02-10] MEDS: RANITIDINE 150 MG TABLET PO SCH (10:09)
[2018-02-10] MEDS: LISINOPRIL 20 MG TAB PO SCH (10:09)
[2018-02-10] MEDS: ASPIRIN 81 MG CHEWABLE TABLET PO SCH (10:09)
[2018-02-10] MEDS: CETIRIZINE HCL 5 MG TABLET PO SCH (10:09)
[2018-02-10] MEDS: AMLODIPINE 10 MG TAB PO SCH (10:09)
[2018-02-10] MEDS: FUROSEMIDE 40 MG/4 ML VIAL IV SCH (10:09)
[2018-02-10] MEDS: FLUOXETINE 20 MG CAP PO SCH (10:09)
[2018-02-10] MEDS: CARVEDILOL 25 MG TAB PO SCH (10:10)
--- NOTE | 2018-02-10 11:05 | DS ---
Date of Discharge: 02/10/2018 Consultants: Dr. Hood and Dr. Hernandez with Cardiology. Admitting Diagnoses: 1.Acute congestive heart failure exacerbation with diastolic dysfunction. 2.Bilateral lower extremity cellulitis. 3.Essential hypertension. 4.Abnormal x-ray. 5.Coronary artery disease, [place] artery and [place] heart without angina. 6.Acute dermatitis. 7.Chronic venous stasis. Discharge Diagnoses: 1.Acute on chronic diastolic heart failure, improved. 2.Bilateral lower extremity cellulitis, improving. Blood cultures negative. 3.Essential hypertension, stable. 4.Diffuse metastatic prostate cancer with multiple lytic lesions in the bone. 5.Coronary artery disease, [place] artery and [place] heart without angina. 6.Acute dermatitis. 7.Chronic venous stasis. 8.Morbid obesity, BMI 40. Hospital Course: The patient is a 72-year-old male, who comes in with CHF exacerbation. He has a hi story of heart disease, COPD, diabetes, prostate cancer, diastolic heart failure, who had worsening c ellulitis. He also had some redness and pain in his legs, right greater than left. He was started o n empiric antibiotics and cultures were obtained, which remained negative. His white count was stabl e. The patient otherwise was doing well with diuresis. He was started on IV Lasix and CHF guideline s. He was seen by Dr. Hood for CHF, as well as Dr. Hernandez. The patient had decreasing approximat sunny 12 pounds of his weight leading to negative fluid balance. The patient on his x-ray had some abn ormalities found with high density in the bones. Given his history of prostate cancer, concern for m etastatic disease was raised. A CT scan of the chest was done to rule out lung nodules or lung lesio ns and this confirmed to be multiple lytic lesions that were found on the CT chest. He did not have any lung nodules. Dr. Rangel, the patient's radiation oncologist, was contacted and informed that his PSA level is close to 600 and has multiple lytic lesions. He recommended outpatient followup wit medical oncologist, Dr. Gomez and Dr. Leon for further evaluation and treatment plan. Bone sc an will be scheduled as an outpatient. I informed the patient's family member. I spoke with her mul tiple times during the hospital stay to update her on the patient's medical condition, his recurrence of prostate cancer, and further diagnostic testing to be done as an outpatient at the cancer center. She was understanding. All questions were answered. The patient has been doing well. He was maricruz red for discharge from Cardiology standpoint and was sent home in a stable condition. Medications: As per medication reconciliation list. Followup: Follow up with primary care physician in 2-3 days. Follow up with food service team member, Dr. Su ramires and Dr. Hood in 2 weeks. Follow up with medical oncologist, Dr. Gomez and Dr. Leon at [facility] next week for outpatient bone scan and evaluation and treatment of recurrent pro state cancer. Total time spent discharging the patient was 43 minutes. Diet: Fluid-restricted diet, low-sodium. Activity: Fall precautions. Physical Examination: General: Awake, alert, oriented x3, not in any acute distress. Morbidly obese, BMI 40. CV: S1 and S2. No murmurs. Respiratory: Moving air well bilaterally. No wheezing. Abdomen: Soft, nontender, and nondistended. Positive bowel sounds. Extremities: No clubbing, cyanosis. 2+ edema. Skin: Erythema of bilateral lower extremities is improved significantly from chronic venous stasis changes. Neuro: Nonfocal. SA/MODL Voice ID: [id number] Report ID: [id number]
[2018-02-10 13:26] VITALS: BP 109/56; TEMP 99.5
--- NOTE | 2018-02-10 13:40 | EKG ---
Test Date: 2018-02-10 Test Time: 07:09:14 Junior Administrative Assistant: STACEY MEASUREMENT RESULTS: Intervals: Rate: 56 NV: 360 QRSD: 156 QT: 524 QTc: 505 [place]: P: 85 NV: 360 QRS: -35 T: 40 INTERPRETIVE STATEMENTS: Sinus rhythm with second degree AV block type I Left axis deviation Right bundle branch block Abnormal ECG Compared to ECG 02/07/2018 18:47:21 Second degree AV block type I is now present Myocardial infarct finding no longer present Electronically Signed On 02-10-18 13:40:00 CDT by Heladio Hernandez
== END 2018-02-10 13:03 | disposition home or self-care (01) ==
LOC: ER 18:30 → ERHOLD 20:51 → INTOOBSV 20:51 → 2ND 02-08 00:08
PROVIDERS: ADMIT Internal Medicine; ATTEND Family Medicine
DX: I50.33 Acute on chronic diastolic (congestive) heart failure (principal); L03.115 Cellulitis of right lower limb; L03.116 Cellulitis of left lower limb; I10 Essential (primary) hypertension; I25.10 Atherosclerotic heart disease of native coronary artery without angina pectoris; I87.8 Other specified disorders of veins; L30.9 Dermatitis, unspecified; J44.9 Chronic obstructive pulmonary disease, unspecified; E11.9 Type 2 diabetes mellitus without complications; E66.01 Morbid (severe) obesity due to excess calories; Z68.41 Body mass index [BMI] 40.0-44.9, adult
CPT/HCPCS: 36415 ×3; 71045 ×2; 71260; 80048 ×3; 80076; 80202 ×2; 81003; 82962 ×10; 83036; 83735 ×2; 83880; 84132; 84145; 84484; 85025 ×2; 85610; 87040 ×2; 93005 ×2; 93306; 93970; 94760 ×5; 96365; 96366; 96375; 97110 ×2; 97116 ×5; 97163; 99285; G0103; J1650; J3370 ×2; Q9967; 81015

== ENCOUNTER 2018-05-27 09:24 | Inpatient (IN) | payer OTHER ==
[2018-05-27 10:24] LABS: Protime INR 1.14
[2018-05-27 10:34] LABS: Absolute Lymphocytes (CBC) 0.6 K/uL (0.7-4.9); Absolute Monocytes 0.4 K/uL (0.1-1.3); Absolute Neutrophil 3.7 K/uL (1.8-8.0); Basophils % 0.5 % (0-1.3); Eosinophils % 4.9 % (0-4.4); Hematocrit 27.1 % (39.6-49.0); Lymphocytes % 11.5 % (15.3-44.8); MCH 28.6 pg (27.0-35.0); MCV 87.2 fL (80-100); MPV 7.9 fL (7.6-11.3); Monocytes % 8.7 % (3.3-12.3)
[2018-05-27 10:35] LABS: ALT/SGPT 26 U/L (12-78); AST/SGOT 22 U/L (15-37); Albumin 3.4 g/dL (3.4-5.0); Alkaline Phosphatase 688 U/L (45-117); BUN Blood Urea Nitrogen 12 mg/dL (7-18); Bicarbonate 27 mmol/L (21-32); Bilirubin Direct 0.4 mg/dL (0-0.2); Bilirubin Total 1.1 mg/dL (0.2-1.0); Glucose Level 98 mg/dL (74-106); Magnesium 2.5 mg/dL (1.8-2.4); NT PRO-BNP 6014 pg/mL (<125); Protein, Total 7.3 g/dL (6.4-8.2); Sodium Level 141 mmol/L (136-145); Troponin (Emerg Dept Use Only) < 0.02 ng/mL (0.0-0.045)
--- NOTE | 2018-05-27 10:37 | ER ---
Nurse's Notes [facility] Name: Frank Abernathy Age: 72 yrs Sex: Male : 1945 Arrival Date: 05/27/2018 Time: 09:25 Bed 8 Private MD: Diagnosis: Acute combined systolic (congestive) and diastolic (congestive) heart failure Presentation: 05/27 09:35 Presenting complaint: Patient states: chest pain and sob for the past 5 days. seems to ch be getting worse. Transition of care: patient was not received from another setting of care. Onset of symptoms was May 22, 2018. Risk Assessment: Do you want to hurt yourself or someone else? Patient reports no desire to harm self or others. Initial Sepsis Screen: Does the patient meet any 2 criteria? No. Patient's initial sepsis screen is negative. Does the patient have a suspected source of infection? No. Patient's initial sepsis screen is negative. Care prior to arrival: None. 09:35 Method Of Arrival: Ambulatory 09:35 Acuity: CHRISTI 2 Triage Assessment: 09:42 General: Appears in no apparent distress. uncomfortable, obese, Behavior is anxious. Pain: Denies pain. Respiratory: Reports shortness of breath air hunger Airway is patent Respiratory effort is gasping, Breath sounds are diminished bilaterally. Breath sounds with rhonchi bilaterally. Onset: The symptoms/episode began/occurred suddenly. 13:02 Respiratory: the patient has moderate shortness of breath. la1 Historical: - Allergies: 09:42 Amoxicillin; 09:42 Zithromax; - Home Meds: 09:42 carvedilol 25 mg Oral tab 1 tab three times a day [Active]; clopidogrel 75 mg Oral tab ch 1 tab once daily [Active]; [place] Aspirin 81mg Oral [Active]; fluoxetine 40 mg Oral cap 1 cap once daily [Active]; bicalutamide 50 mg oral tab 1 tab once daily [Active]; atorvastatin 80 mg Oral tab 1 tab once daily [Active]; Symbicort 160-4.5 mcg/actuation inhalation HFAA 2 puffs 2 times per day [Active]; fluticasone 50 mcg/actuation nasal spsn as needed [Active]; furosemide 80 mg Oral tab once daily [Active]; montelukast 10 mg Oral tab [Active]; ranitidine HCl 300 mg Oral tab 1 tab 2 times per day [Active]; magnesium oxide 400 mg Oral cap daily [Active]; fluocinolone 0.01 % topical crea [Active]; lisinopril 40 mg Oral tab 1 tab once daily [Active]; Triamcinolone Acetonide Topical [Active]; amlodipine 10 mg tab 1 tab once daily [Active]; - PMHx: 09:42 Anemia; CAD; Chronic Kidney Disease - Stage 3; Depression; COPD; Diabetes - NIDDM; ch GERD; Hyperlipidemia; Hypertension; lymphedema; Myocardial infarction; Prostate Cancer; Sleep Apnea; bone cancer- getting injections 2017; - Immunization history:: Adult Immunizations up to date. - Social history:: Smoking status: . - Ebola Screening: : Patient negative for fever greater than or equal to 101.5 degrees Fahrenheit, and additional compatible Ebola Virus Disease symptoms Patient denies exposure to infectious person Patient denies travel to an Ebola-affected area in the 21 days before illness onset No symptoms or risks identified at this time. Screenin:47 Abuse screen: Denies threats or abuse. Denies injuries from another. Nutritional ch screening: No deficits noted. Tuberculosis screening: No symptoms or risk factors identified. Fall Risk None identified. Assessment: 09:47 Cardiovascular: Pulses are all present. Edema is 4+ to left midcalf, left ankle, left ch foot, left toes, right midcalf, right ankle, right foot and right toes pitting to left midcalf, left ankle, left foot, right midcalf, right ankle and right foot Rhythm is regular. 09:49 Reassessment: pt placed on NC at 2L upon arrival into room 8. pt o2 increases to 94%. ch 10:41 Reassessment: Patient appears in no apparent distress at this time. Patient and/or ch family updated on plan of care and expected duration. Pain level reassessed. General: Appears in no apparent distress. uncomfortable. Respiratory: Reports shortness of breath air hunger improved after NC application Airway is patent Trachea midline Respiratory effort is labored, gasping, with nasal flaring, shallow, Respiratory pattern is tachypnea Breath sounds are diminished bilaterally. 12:34 Reassessment: Patient appears in no apparent distress at this time. Patient and/or ch family updated on plan of care and expected duration. Pain level reassessed. Patient states feeling better. Patient states symptoms have improved. Vital Signs: 09:42 BP 129 / 52; Pulse 65; Resp 36; Temp 97.9; Pulse Ox 89% on R/A; Weight 129.95 kg; ch Height 5 ft. 7 in. (170.18 cm); Pain 0/10; 10:43 BP 125 / 80; Pulse 69; Resp 32; Temp 99.1; Pulse Ox 97% on 2 lpm NC; Pain 0/10; ch 11:11 BP 123 / 76; Pulse 69; Resp 28; Pulse Ox 97% on 2 lpm NC; Pain 0/10; ch 12:34 BP 133 / 63; Pulse 64; Resp 15; Temp 98.3; Pulse Ox 95% on 2 lpm NC; Pain 0/10; ch 09:42 Body Mass Index 44.87 (129.95 kg, 170.18 cm) ch Vitals: 09:47 Cardiac Rhythm Assessment Regular Sinus rhythm. ED Course: 09:25 Patient arrived in ED. mr 09:34 Marisol Campos, KELLY is Primary Nurse. ch 09:36 Triage completed. ch 09:37 Clyde Daniel PA is PHCP. jr8 09:37 Won Gaitan MD is Attending Physician. jr8 09:39 Inserted saline lock: 20 gauge in right wrist, using aseptic technique. Blood collected.la1 09:42 Arm band placed on left wrist. ch 09:47 No apparent distress. Resting quietly. ch 09:47 No provider procedures requiring assistance completed. ch 09:47 Patient has correct armband on for positive identification. Placed in gown. Bed in low ch position. Call light in reach. Side rails up X2. Adult w/ patient. residential monitor on. Pulse ox on. NIBP on. 10:26 X-ray completed. Portable x-ray completed in exam room. Patient tolerated procedure bb2 well. 10:26 XRAY Chest (1 view) In Process Unspecified. EDMS 10:36 Patel Lincoln MD is Hospitalizing Provider. jr8 13:02 Patient admitted, IV remains in place. la1 Administered Medications: 10:31 Drug: Lasix 60 mg Route: IVP; Site: right forearm; ch 10:41 Follow up: Response: No adverse reaction ch 13:03 Follow up: Response: Other la1 Output: 12:34 Urine: 2800ml (Voided); Total: 2800ml. Outcome: 10:36 Decision to Hospitalize by Provider. morgan 13:02 Admitted to Med/surg accompanied by tech, via wheelchair, with oxygen. kenroy 13:02 Condition: stable 13:02 Instructed on the need for admit. 13:03 Patient left the ED. kenroy Signatures: Dispatcher [employer] EDMS Marisol Campos RN RN Melissa Modi mr Clyde Daniel PA PA jr8 Sebastian Bull RN RN la Jasmine Trimble
--- NOTE | 2018-05-27 10:37 | EDPHYS ---
Physician Documentation [facility] Name: Frank Abernathy Age: 72 yrs Sex: Male : 1945 Arrival Date: 05/27/2018 Time: 09:25 Bed 8 Private MD: ED Physician Won Gaitan HPI: 05/27 10:34 This 72 yrs old Male presents to ER via Ambulatory with complaints of jr8 Breathing Difficulty, Chest Pain. 10:34 The patient has shortness of breath at rest. Onset: The symptoms/episode began/occurred jr8 gradually, 5 day(s) ago, and became worse and became persistent. Duration: The symptoms are continuous. The patient's shortness of breath is aggravated by talking. Associated signs and symptoms: Pertinent positives: chest pain. Severity of symptoms: At their worst the symptoms were moderate in the emergency department the symptoms are unchanged. The patient has experienced similar episodes in the past, a few times. The patient has not recently seen a physician. Historical: - Allergies: 09:42 Amoxicillin; ch 09:42 Zithromax; ch - Home Meds: 09:42 carvedilol 25 mg Oral tab 1 tab three times a day [Active]; clopidogrel 75 mg Oral tab ch 1 tab once daily [Active]; Ginna Aspirin 81mg Oral [Active]; fluoxetine 40 mg Oral cap 1 cap once daily [Active]; bicalutamide 50 mg oral tab 1 tab once daily [Active]; atorvastatin 80 mg Oral tab 1 tab once daily [Active]; Symbicort 160-4.5 mcg/actuation inhalation HFAA 2 puffs 2 times per day [Active]; fluticasone 50 mcg/actuation nasal spsn as needed [Active]; furosemide 80 mg Oral tab once daily [Active]; montelukast 10 mg Oral tab [Active]; ranitidine HCl 300 mg Oral tab 1 tab 2 times per day [Active]; magnesium oxide 400 mg Oral cap daily [Active]; fluocinolone 0.01 % topical crea [Active]; lisinopril 40 mg Oral tab 1 tab once daily [Active]; Triamcinolone Acetonide Topical [Active]; amlodipine 10 mg tab 1 tab once daily [Active]; - PMHx: 09:42 Anemia; CAD; Chronic Kidney Disease - Stage 3; Depression; COPD; Diabetes - NIDDM; ch GERD; Hyperlipidemia; Hypertension; lymphedema; Myocardial infarction; Prostate Cancer; Sleep Apnea; bone cancer- getting injections 2018; - Immunization history:: Adult Immunizations up to date. - Social history:: Smoking status: . - Ebola Screening: : Patient negative for fever greater than or equal to 101.5 degrees Fahrenheit, and additional compatible Ebola Virus Disease symptoms Patient denies exposure to infectious person Patient denies travel to an Ebola-affected area in the 21 days before illness onset No symptoms or risks identified at this time. ROS: 10:34 Eyes: Negative for injury, pain, redness, and discharge, ENT: Negative for injury, jr8 pain, and discharge, Neck: Negative for injury, pain, and swelling, Abdomen/GI: Negative for abdominal pain, nausea, vomiting, diarrhea, and constipation, Back: Negative for injury and pain, MS/Extremity: Negative for injury and deformity, Skin: Negative for injury, rash, and discoloration, Neuro: Negative for headache, weakness, numbness, tingling, and seizure. 10:34 Cardiovascular: Positive for chest pain, edema, orthopnea, Negative for palpitations, paroxysmal nocturnal dyspnea. 10:34 Respiratory: Positive for dyspnea on exertion, orthopnea, shortness of breath, Negative for cough, sputum production, wheezing. Exam: 10:34 Eyes: Pupils equal round and reactive to light, extra-ocular motions intact. Lids and jr8 lashes normal. Conjunctiva and sclera are non-icteric and not injected. Cornea within normal limits. Periorbital areas with no swelling, redness, or edema. ENT: Nares patent. No nasal discharge, no septal abnormalities noted. Tympanic membranes are normal and external auditory canals are clear. Oropharynx with no redness, swelling, or masses, exudates, or evidence of obstruction, uvula midline. Mucous membranes moist. Neck: Trachea midline, no thyromegaly or masses palpated, and no cervical lymphadenopathy. Supple, full range of motion without nuchal rigidity, or vertebral point tenderness. No Meningismus. Cardiovascular: Regular rate and rhythm with a normal S1 and S2. No gallops, murmurs, or rubs. Normal PMI, no JVD. No pulse deficits. Abdomen/GI: Soft, non-tender, with normal bowel sounds. No distension or tympany. No guarding or rebound. No evidence of tenderness throughout. Back: No spinal tenderness. No costovertebral tenderness. Full range of motion. Skin: Warm, dry with normal turgor. Normal color with no rashes, no lesions, and no evidence of cellulitis. MS/ Extremity: Pulses equal, no cyanosis. Neurovascular intact. Full, normal range of motion. Neuro: Awake and alert, GCS 15, oriented to person, place, time, and situation. Cranial nerves II-XII grossly intact. Motor strength 5/5 in all extremities. Sensory grossly intact. Cerebellar exam normal. Normal gait. 10:34 Respiratory: mild respiratory distress is noted, Respirations: tachypnea, that is moderate, Breath sounds: rales, that are mild, are located in both bases. Vital Signs: 09:42 BP 129 / 52; Pulse 65; Resp 36; Temp 97.9; Pulse Ox 89% on R/A; Weight 129.95 kg; ch Height 5 ft. 7 in. (170.18 cm); Pain 0/10; 10:43 BP 125 / 80; Pulse 69; Resp 32; Temp 99.1; Pulse Ox 97% on 2 lpm NC; Pain 0/10; ch 11:11 BP 123 / 76; Pulse 69; Resp 28; Pulse Ox 97% on 2 lpm NC; Pain 0/10; ch 12:34 BP 133 / 63; Pulse 64; Resp 15; Temp 98.3; Pulse Ox 95% on 2 lpm NC; Pain 0/10; ch 09:42 Body Mass Index 44.87 (129.95 kg, 170.18 cm) MDM: 09:37 Patient medically screened. [facility] 10:35 Data reviewed: vital signs, nurses notes, lab test result(s), EKG, radiologic studies, jr8 plain films. Data interpreted: Pulse oximetry: on room air is 89 %. Counseling: I had a detailed discussion with the patient and/or guardian regarding: the historical points, exam findings, and any diagnostic results supporting the discharge/admit diagnosis, lab results, radiology results, the need for further work-up and treatment in the hospital. 05/27 09:37 Order name: Basic Metabolic Panel; Complete Time: 10:35 jr8 05/27 09:37 Order name: CBC with Diff; Complete Time: 10:35 [facility] 05/27 09:37 Order name: LFT's; Complete Time: 10:35 05/27 09:37 Order name: Magnesium; Complete Time: 10:35 05/27 09:37 Order name: NT PRO-BNP; Complete Time: 10:35 05/27 09:37 Order name: PT-INR; Complete Time: 10:34 05/27 09:37 Order name: Troponin (emerg Dept Use Only); Complete Time: 10:35 05/27 09:37 Order name: XRAY Chest (1 view); Complete Time: 11:32 05/27 09:37 Order name: EKG; Complete Time: 09:38 05/27 09:37 Order name: Cardiac monitoring; Complete Time: 09:47 05/27 09:37 Order name: EKG - Nurse/Tech; Complete Time: 09:47 05/27 10:08 Order name: Urine Dipstick--Ancillary (enter results) ag 05/27 10:08 Order name: Urine Dipstick-Ancillary EDMS 05/27 09:37 Order name: IV Saline Lock; Complete Time: 09:47 05/27 09:37 Order name: Labs collected and sent; Complete Time: 09:47 05/27 09:37 Order name: O2 Per Protocol; Complete Time: 09:47 05/27 09:37 Order name: O2 Sat Monitoring; Complete Time: 09:47 05/27 09:37 Order name: Urine Dipstick-Ancillary (obtain specimen); Complete Time: 10:41 jr8 Administered Medications: 10:31 Drug: Lasix 60 mg Route: IVP; Site: right forearm; ch 10:41 Follow up: Response: No adverse reaction ch 13:03 Follow up: Response: Other la1 Disposition: 05/27/18 10:36 Hospitalization ordered by Patel Lincoln for Inpatient Admission. Preliminary diagnosis is Acute combined systolic (congestive) and diastolic (congestive) heart failure. - Bed requested for Telemetry/MedSurg (Inpatient). - Status is Inpatient Admission. la1 - Condition is Fair. - Problem is new. - Symptoms have improved. UTI on Admission? No Addendum: 05/29/2018 07:50 Co-signature as Attending Physician, Won Gaitan MD I agree with the assessment and w a plan of care. Signatures: Dispatcher [employer] EDMS Marisol Campos, RN RN Mickie Moncada RN RN Clyde Daniel PA PA jr8 Sebastian Bull RN RN la1 Won Gaitan MD MD wa Corrections: (The following items were deleted from the chart) 05/27 11:54 10:36 Hospitalization Ordered by Patel Lincoln MD for Inpatient Admission. dw Preliminary diagnosis is Acute combined systolic (congestive) and diastolic (congestive) heart failure. Bed requested for Telemetry/MedSurg (Inpatient). Status is Inpatient Admission. Condition is Fair. Problem is new. Symptoms have improved. UTI on Admission? No. jr8 13:03 11:54 05/27/2018 10:36 Hospitalization Ordered by Patel Lincoln MD for Inpatient la1 Admission. Preliminary diagnosis is Acute combined systolic (congestive) and diastolic (congestive) heart failure. Bed requested for Telemetry/MedSurg (Inpatient). Status is Inpatient Admission. Condition is Fair. Problem is new. Symptoms have improved. UTI on Admission? No. dw
[2018-05-27] MEDS ORDERED: FUROSEMIDE 100 MG/10 ML VIAL IV ONE (10:38)
--- NOTE | 2018-05-27 11:09 | RAD REPORT ---
EXAM DESCRIPTION: Nina Single View05/27/2018 10:29 am CLINICAL HISTORY: Chest pain COMPARISON: January 2018 FINDINGS: The lungs appear clear of acute infiltrate. The heart is moderately enlarged. Bones are sclerotic indicative of metastatic disease
[2018-05-27 13:11] LABS: Urine Blood TRACE (NEG); Urine Glucose NEGATIVE (NEG); Urine Protein NEGATIVE (NEG)
[2018-05-27] MEDS ORDERED: ACETAMINOPHEN 500 MG TAB PO PRN (16:15)
[2018-05-27] MEDS ORDERED: ONDANSETRON 4 MG/2 ML VIAL IV PRN (16:15)
[2018-05-27 16:59] LABS: Absolute Lymphocytes (CBC) 0.5 K/uL (0.7-4.9); Absolute Monocytes 0.4 K/uL (0.1-1.3); Absolute Neutrophil 3.2 K/uL (1.8-8.0); Basophils % 0.4 % (0-1.3); Eosinophils % 5.5 % (0-4.4); Lymphocytes % 12.2 % (15.3-44.8); MCH 28.3 pg (27.0-35.0); MPV 7.8 fL (7.6-11.3); Monocytes % 9.7 % (3.3-12.3); RBC Red Blood Cell Count 2.87 M/uL (4.33-5.43)
[2018-05-27 17:20] LABS: Troponin I 0.02 ng/mL (0.0-0.045)
[2018-05-27 18:08] LABS: Anisocytosis 1+; Blood Morphology Comment NOTED (NOT SEEN); Macrocytosis 1+; Platelet Estimate ADEQ; Poikilocytosis 1+; Urine White Blood Cell Casts OK
[2018-05-27 18:09] LABS: Ovalocytes 1+
[2018-05-27] MEDS: CARVEDILOL 25 MG TAB PO SCH (18:35)
[2018-05-27] MEDS: FUROSEMIDE 40 MG/4 ML VIAL IV SCH (18:35)
[2018-05-27] MEDS: ENOXAPARIN 40 MG/0.4 ML SQ SCH (18:36)
[2018-05-27] MEDS ORDERED: TRIAMCINOLONE 0.1% CREAM 15GM TOP PRN (19:00)
[2018-05-27] MEDS ORDERED: FLUOCINONIDE 0.1% TOP PRN (19:00)
[2018-05-27] MEDS: ALBUTEROL 2.5 MG/3 ML NEB SOL NEB SCH (19:42)
[2018-05-27] MEDS: IPRATROPIUM BROM 0.5MG/2.5ML NEB SCH (19:42)
[2018-05-27] MEDS ORDERED: CARVEDILOL 25 MG TAB PO SCH (21:00)
[2018-05-27] MEDS: Symbicort 160-4.5 Mcg Inhaler IH SCH (22:10)
[2018-05-27] MEDS: ATORVASTATIN 80 MG TAB PO SCH (22:10)
[2018-05-27] MEDS: RANITIDINE 150 MG TABLET PO SCH (22:10)
[2018-05-28 01:05] LABS: CKMB Creatine Kinase MB 1.3 ng/mL (0.3-3.6); Troponin I 0.02 ng/mL (0.0-0.045)
[2018-05-28] MEDS: ALBUTEROL 2.5 MG/3 ML NEB SOL NEB SCH ×4 (01:30→19:55)
[2018-05-28] MEDS: IPRATROPIUM BROM 0.5MG/2.5ML NEB SCH ×4 (01:30→19:55)
--- NOTE | 2018-05-28 02:51 | HP ---
Date of Admission: 05/27/2018 Reason For Admission: Progressive shortness of breath. History Of Present Illness: This is a 72-year-old gentleman with history of coronary artery disease, COPD, emphysema, diabetes mellitus, prostate cancer, chronic diastolic CHF, who presented with progr essive shortness of breath that started 3 days ago with progressive lower extremity edema. In the ER , patient was evaluated and chest x-ray interestingly was unremarkable but BNP was around 6000. The patient was started on IV Lasix. Admitted for further diuresis. His troponin was less than 0.02. H e is currently feeling somewhat better. He ate his lunch, and he denies any chest pain or abdominal pain. Review of Systems: Otherwise as below. Past Medical History: Significant for COPD, emphysema, asthma, hypertension, hyperlipidemia, lymphed riky, congestive heart failure, diastolic chronic, myocardial infarction, cellulitis, prostate cancer, currently on Lupron injection and Casodex. Multiple cardiac stents. Past Surgical History: None according to the patient. Allergies: ALLERGIES TO AMOXICILLIN, ZITHROMAX, AND PENICILLIN. Social History: The patient is . He has 3 kids. He does not drink, smoke, use any drugs. He used to smoke, but quit 30 years ago. Family History: Both father and mother . Father of CHF. Mother of diabetes. Medications: At home significant for Lasix 80 mg once a day. Norvasc 10 mg once a day, aspirin 81 m g once a day, Lipitor 80 mg once a day, Casodex 50 mg daily, Symbicort 160/4.5 mcg inhaler, Coreg 25 mg daily, Plavix 300 mg daily, Synalar 120 cream topically, Prozac 20 mg once a day. Fluticasone or Flonase inhaler as needed. Lisinopril 20 mg once a day. Magnesium oxide 400 mg once a day, Singulai r 10 mg once a day, ranitidine mg twice a day. Triamcinolone topically. Review of Systems: Denies any fever, chills, night sweats, dizziness, lightheaded headache, blurred vision. There is no chest pain but he has cough and shortness of breath. There was no sputum. He does not have palpita tions, but he had PND and orthopnea. He does not have any nausea, vomiting, abdominal pain, change i n bowel movement, diarrhea, constipation, dysuria, frequency, urgency, hematuria. There is no histor y of depression, anxiety, seizure, or stroke. Physical Examination: Vital Signs: Blood pressure is at 148/78, respiratory rate 24, heart rate 61, temperature 98. The p atient is saturating 96% currently on 2 L nasal cannula. General: He is alert, oriented x3. Does not look in any distress. HEENT: Atraumatic, normocephalic. PERRLA. Oral mucosa is moist. Neck: Supple. No JVD. No carotid bruits. Chest: Clear to auscultation with bibasilar crackles. Heart: Regular rate and rhythm. S1, S2 normal. No gallop. Abdomen: Soft, nontender. No masses. No hepatosplenomegaly. Positive bowel sounds. Obese. Extremities: No clubbing, +2 edema both lower extremities. Neurologic: Grossly intact. Cranial nerve exam 2 through 12 intact. Normal gait. Normal reflexes. Normal muscle strength. Laboratory Data: Today done showed CBC within normal except for hemoglobin 8.9, platelets 228, white blood cells 5. Chemistry within normal except for magnesium of 4.5, bilirubin of 1.1, alkaline phos phatase 688 with a BNP of 6014. Chest x-ray, unremarkable. EKG, nonspecific changes. Assessment And Plan: This is a 72-year-old gentleman with history of congestive heart failure, coron marina artery disease, multiple medical problems, presented with progressive shortness of breath. 1.Nhqdz-mj-dxusvay diastolic congestive heart failure. We will admit patient to the floor. Check c ardiac enzymes. Keep him on tele. He will be on Lasix 40 mg IV twice a day. We will proceed with e chocardiogram to evaluate his ejection fraction at this point. 2.Coronary artery disease, We will check cardiac enzymes. He will be on aspirin, statin, NORMA inhibi tor. 3.History of chronic obstructive pulmonary disease, emphysema. We will continue patient on his inha lers with albuterol, Atrovent, Flonase. 4.Hypertension. We will continue on lisinopril. Also patient will be continued on Coreg 25 mg twice a day. 5.Prostate cancer metastatic. He is on Casodex and Lupron per local oncologist. 6.History of dermatitis. Continue on topical steroid cream. 7.Deep vein thrombosis prophylaxis with Lovenox 40. 8.Elevated magnesium. We will hold magnesium from his home medication list. 9.Elevated bilirubin most likely secondary to his liver congestion from congestive heart failure. 10.Physical therapy. Once patient feels better. 11.Patient with recurrent admission to the hospital. Maybe he will need consult with transition social worker to evaluate if the patient needs placement. TETE Voice ID: [id number]
[2018-05-28] MEDS: CARVEDILOL 25 MG TAB PO SCH ×2 (05:51→17:31)
[2018-05-28] MEDS ORDERED: BICALUTAMIDE 50 MG PO SCH (09:00)
[2018-05-28] MEDS: AMLODIPINE 10 MG TAB PO SCH (09:00)
[2018-05-28] MEDS ORDERED: ASPIRIN EC 81 MG TAB PO SCH (09:00)
[2018-05-28] MEDS: FUROSEMIDE 40 MG/4 ML VIAL IV SCH ×3 (09:00→17:04)
[2018-05-28] MEDS ORDERED: LISINOPRIL 20 MG TAB PO SCH (09:00)
[2018-05-28] MEDS ORDERED: MAGNESIUM OXIDE PO SCH (09:00)
[2018-05-28 09:05] LABS: CKMB Creatine Kinase MB 1.2 ng/mL (0.3-3.6); Creatine Phosphokinase 66 U/L (39-308); Troponin I < 0.02 ng/mL (0.0-0.045)
--- NOTE | 2018-05-28 10:09 | RAD REPORT ---
EXAM DESCRIPTION: RAD - Chest Pa And Lat (2 Views) - 05/28/2018 9:42 am CLINICAL HISTORY: Shortness of breath, CHF history, metastatic prostate carcinoma COMPARISON: May 27 TECHNIQUE: PA and lateral views of the chest were obtained. FINDINGS: The lungs are normal volume. No peripheral consolidation or lung parenchymal mass. Interst itial markings are prominent but not clearly different from prior imaging. Mild cardiomegaly is prese nt and stable. Trachea is midline. No pleural effusion or pneumothorax seen. Numerous sclerotic fo ci throughout the skeleton. Patient is known to have diffuse bony metastatic disease. No aortic abnor mality. IMPRESSION: Heart, vasculature and lung markings are mildly prominent. This is believed to be a mild underlying failure/volume overload.
[2018-05-28] MEDS: Symbicort 160-4.5 Mcg Inhaler IH SCH ×2 (10:23→20:34)
[2018-05-28] MEDS: ASPIRIN 81 MG CHEWABLE TABLET PO SCH (10:24)
[2018-05-28] MEDS: RANITIDINE 150 MG TABLET PO SCH ×2 (10:26→20:33)
[2018-05-28] MEDS: FLUOXETINE 20 MG CAP PO SCH (10:26)
[2018-05-28] MEDS: CLOPIDOGREL 75 MG TABLET PO SCH (10:27)
[2018-05-28] MEDS: LISINOPRIL 20 MG TAB PO SCH (10:29)
[2018-05-28] MEDS: FLUTICASONE 50MCG NASAL SPRAY NAS SCH (10:35)
[2018-05-28] MEDS: MONTELUKAST 10 MG TAB PO SCH (10:57)
[2018-05-28] MEDS: ENOXAPARIN 40 MG/0.4 ML SQ SCH (17:05)
[2018-05-28 17:15] LABS: ALT/SGPT 24 U/L (12-78); AST/SGOT 22 U/L (15-37); Alkaline Phosphatase 569 U/L (45-117); BUN Blood Urea Nitrogen 16 mg/dL (7-18); Bicarbonate 30 mmol/L (21-32); Bilirubin Total 0.8 mg/dL (0.2-1.0); Glucose Level 95 mg/dL (74-106); Protein, Total 6.7 g/dL (6.4-8.2); Sodium Level 138 mmol/L (136-145)
--- NOTE | 2018-05-28 17:21 | PN ---
Subjective: Currently the patient lying in bed. He looks comfortable. His shortness of breath is much less, he is diuresing very well with very good urine output. no fever, no chills overnight, with appetite. Objective: Vital Signs: Currently blood pressure is 106/58, heart rate 18, pulse 52, temperature 97.1. General: He is alert and oriented x3. Does not look in any distress. HEENT: Atraumatic, normocephalic. PERRLA. Oral mucosa is moist. Neck: Supple. No JVD. No carotid bruits. Chest: Clear to auscultation with basilar crackles. Heart: Regular rate and rhythm. No gallop. ABDOMEN: Soft, nontender. No masses. Obese. Positive bowel sounds. Extremities: No clubbing or cyanosis. +1 edema, which is better from yesterday. Neurologic: Grossly intact. Laboratory Data: Today showed CBC with hemoglobin 8.1, platelet of 201, white blood cells of 4.4. Chemistry today is still pending. BNP down from 6000 to 5500. Cardiac enzymes 3 sets, negative. Echocardiogram still pending. Assessment And Plan: 1. [id number] diastolic congestive heart failure. The patient doing very well with diuresis. Continue IV Lasix twice a day. The patient's cardiac enzymes were negative. BNP trending down. Echocardiogram pending tomorrow. If continued to improve clinically hopefully we can switch him to oral Lasix and discharge him in the morning. But I think the patient need social work involvement to see how could we avoid recurrent hospital admission for congestive heart failure exacerbation as well as he need close followup with his primary care physician. Seems Lasix alone is not able to keep his congestive heart failure stable. 2. Coronary artery disease. Cardiac enzymes were negative. Continue statin and aspirin. NORMA inhibitor. 3. History of chronic obstructive pulmonary disease, emphysema. The patient on inhalers with Atrovent, Flonase and albuterol. 4. Hypertension, well controlled and this morning patient's blood pressure was low. We will hold his lisinopril and Norvasc given his aggressive diuresis. 5. History of metastatic prostate cancer. The patient on Lupron and Casodex. Casodex not available in the pharmacy, we will hold that until discharge and the patient can resume it. 6. History of dermatitis, chronic. Continue topical steroid. 7. Deep venous thrombosis prophylaxis, on Lovenox. 8. Elevated bilirubin yesterday. This morning LFTs still pending. If bilirubin continues to trend up, we may consider ultrasound of the liver but most likely secondary to his congestive heart failure with possible liver congestion. 9. Elevated magnesium. I hold his magnesium oral. I will check magnesium tomorrow again before resuming his home supplement. 10. Physical therapy consult for discharge planning. DEON/ANIA Voice ID: [id number] Report ID: [id number] MTDD
[2018-05-28] MEDS: ATORVASTATIN 80 MG TAB PO SCH (20:33)
[2018-05-29] MEDS: IPRATROPIUM BROM 0.5MG/2.5ML NEB SCH ×4 (02:30→22:16)
[2018-05-29] MEDS: ALBUTEROL 2.5 MG/3 ML NEB SOL NEB SCH ×4 (02:30→22:16)
[2018-05-29] MEDS: CARVEDILOL 25 MG TAB PO SCH ×2 (05:36→17:03)
--- NOTE | 2018-05-29 06:57 | EKG ---
Test Date: 2018-05-27 Test Time: 09:33:18 Peer Specialist: LESVIA MEASUREMENT RESULTS: Intervals: Rate: 64 AK: 318 QRSD: 150 QT: 530 QTc: 546 [place]: P: 54 AK: 318 QRS: -30 T: 52 INTERPRETIVE STATEMENTS: Sinus rhythm with 1st degree AV block with occasional premature ventricular complexes Left axis deviation Right bundle branch block Inferior infarct, age undetermined Abnormal ECG Compared to ECG 02/10/2018 07:09:14 Ventricular premature complex(es) now present First degree AV block now present Myocardial infarct finding now present Second-degree AV block, Mobitz type I (Wenckebach) no longer present Electronically Signed On 05-29-18 06:51:53 CDT by Anupam Hood
[2018-05-29 07:03] LABS: Magnesium 2.1 mg/dL (1.8-2.4); Phosphorus 3.6 mg/dL (2.5-4.9)
[2018-05-29] MEDS: CLOPIDOGREL 75 MG TABLET PO SCH (09:59)
[2018-05-29] MEDS: FLUOXETINE 20 MG CAP PO SCH (09:59)
[2018-05-29] MEDS: LISINOPRIL 20 MG TAB PO SCH (09:59)
[2018-05-29] MEDS: ASPIRIN 81 MG CHEWABLE TABLET PO SCH (09:59)
[2018-05-29] MEDS: MONTELUKAST 10 MG TAB PO SCH (09:59)
[2018-05-29] MEDS: Symbicort 160-4.5 Mcg Inhaler IH SCH ×2 (10:00→20:09)
[2018-05-29] MEDS: RANITIDINE 150 MG TABLET PO SCH ×2 (10:00→20:10)
[2018-05-29] MEDS: AMLODIPINE 10 MG TAB PO SCH (10:00)
[2018-05-29] MEDS: FUROSEMIDE 40 MG/4 ML VIAL IV SCH ×2 (10:00→16:59)
[2018-05-29] MEDS: FLUTICASONE 50MCG NASAL SPRAY NAS SCH (10:01)
[2018-05-29] MEDS: BICALUTAMIDE 50 MG TABLET PO SCH (10:02)
--- NOTE | 2018-05-29 12:39 | ECHO ---
HEIGHT: 5 ft 8 in WEIGHT: 260 lb 3.2 oz DATE OF STUDY: 05/29/[address]: Patel Lincoln MD 2-DIMENSIONAL: YES M.MODE: YES DOPPLER: YES COLOR FLOW: YES TDS: NO PORTABLE: NO DEFINITY: NO BUBBLE STUDY: NO DIAGNOSIS: CONGESTIVE HEART FAILURE CARDIAC HISTORY: CATHERIZATION: NO SURGERY: NO PROSTHETIC VALVE: NO PACEMAKER: NO MEASUREMENTS (cm) DIASTOLIC (NORMALS) SYSTOLIC (NORMALS) IVSd 1.3 (0.6-1.2) LA Diam 4.3 (1.9-4.0) LVEF 65% LVIDd 5.9 (3.5-5.7) LVIDs 3.8 (2.0-3.5) %FS 36% LVPWd 1.2 (0.6-1.2) Ao Diam 3.4 (2.0-3.7) 2 DIMENSIONAL ASSESSMENT: RIGHT ATRIUM: NORMAL LEFT ATRIUM: DILATED RIGHT VENTRICLE: NORMAL LEFT VENTRICLE: NORMAL TRICUSPID VALVE: NORMAL MITRAL VALVE: NORMAL PULMONIC VALVE: NORMAL AORTIC VALVE: SCLEROSIS PERICARDIAL EFFUSION: NONE AORTIC ROOT: NORMAL LEFT VENTRICULAR WALL MOTION: NORMAL DOPPLER/COLOR FLOW: MILD TRICUPSID REGURGITATION. COMMENTS: MILD TRICUPSID REGURGITATION. NORMAL LEFT VENTRICULAR SIZE AND FUNCTION. NO EVIDENCE OF CONGESTIVE HEART FAILURE. TECHNOLOGIST: Srinivas JOHN
--- NOTE | 2018-05-29 12:42 | P.PN ---
Subjective Date of Service: 05/29/18 Chief Complaint: SOB Patient seen and examined at bedside with RN. Chart reviewed. Case discussed with patient and nursing at bedside. Currently patient is doing much better is currently getting his nebulizing treatment. Has been able to be weaned off of 2 L 2 1 L nasal cannula at this time. States that his breathing is much better than before. No chest pain or any other associated symptoms Review of Systems 10-point ROS is otherwise unremarkable Physical Examination - Vital Signs Temperature: 97 F Blood Pressure: 115/56 Pulse: 55 Respirations: 18 Pulse Ox (%): 98 - Physical Exam General: Alert, In no apparent distress HEENT: Atraumatic, PERRLA, EOMI Neck: Supple, JVD not distended Respiratory: Normal air movement, Crackles/rales Cardiovascular: Regular rate/rhythm, Normal S1 S2 Gastrointestinal: Normal bowel sounds, No tenderness Musculoskeletal: No tenderness Integumentary: No rashes Neurological: Normal speech, Normal tone, Normal affect Lymphatics: No axilla or inguinal lymphadenopathy - Studies Medications List Reviewed: Yes Assessment And Plan - Plan Assessment and plan 1.Qgkcq-hj-pmujaaw diastolic congestive heart failure. - The patient doing well with diuresis. BNP trending down. - Continue IV Lasix twice a day. Will add Spironolactone post ECHO - Echocardiogram pending -Currently on Oxygen at 1L will wean off as tolerated 2.H/o Coronary artery disease. -Cardiac enzymes were negative. Continue statin and aspirin. NORMA inhibitor. 3.History of chronic obstructive pulmonary disease, emphysema. - The patient on inhalers with Atrovent, Flonase and albuterol. - Duonebs 4.Hypertension, well controlled -Hold meds due to aggressive diuresis 5.History of metastatic prostate cancer. -The patient on Lupron and Casodex. -Casodex not available in the pharmacy, we will hold that until discharge and the patient can resume it. Dispo: Awaiting clinical improvement at this time. Will try to wean off of oxygen at this time. Once patient is saturating well on room air working with physical therapy and able to ambulate, have inadequate diet will discharge patient home. Anticipate discharge in 24-48 hr. Discharge Plan: Home Plan to discharge in: 48 Hours - Code Status/Comfort Care Code Status Assessed: Yes Critical Care: No
[2018-05-29] MEDS: ENOXAPARIN 40 MG/0.4 ML SQ SCH (17:01)
[2018-05-29] MEDS: ATORVASTATIN 80 MG TAB PO SCH (20:09)
[2018-05-30] MEDS: ALBUTEROL 2.5 MG/3 ML NEB SOL NEB SCH ×4 (02:40→19:40)
[2018-05-30] MEDS: IPRATROPIUM BROM 0.5MG/2.5ML NEB SCH ×4 (02:40→19:40)
[2018-05-30] MEDS: CARVEDILOL 25 MG TAB PO SCH ×2 (05:23→17:00)
[2018-05-30] MEDS: FUROSEMIDE 40 MG/4 ML VIAL IV SCH ×2 (08:55→16:52)
[2018-05-30] MEDS: LISINOPRIL 20 MG TAB PO SCH (08:55)
[2018-05-30] MEDS: MONTELUKAST 10 MG TAB PO SCH (08:56)
[2018-05-30] MEDS: FLUOXETINE 20 MG CAP PO SCH (08:56)
[2018-05-30] MEDS: ASPIRIN 81 MG CHEWABLE TABLET PO SCH (08:56)
[2018-05-30] MEDS: CLOPIDOGREL 75 MG TABLET PO SCH (08:56)
[2018-05-30] MEDS: RANITIDINE 150 MG TABLET PO SCH ×2 (08:56→20:26)
[2018-05-30] MEDS: AMLODIPINE 10 MG TAB PO SCH (08:57)
[2018-05-30] MEDS: FLUTICASONE 50MCG NASAL SPRAY NAS SCH (08:58)
[2018-05-30] MEDS: Symbicort 160-4.5 Mcg Inhaler IH SCH ×2 (08:58→20:25)
[2018-05-30] MEDS: BICALUTAMIDE 50 MG TABLET PO SCH (08:59)
--- NOTE | 2018-05-30 14:13 | P.PN ---
Subjective Date of Service: 05/30/18 Chief Complaint: SOB Patient seen and examined at bedside with RN. Chart reviewed. Case discussed with patient and nursing at bedside. Currently patient is doing better than before. Denies having any shortness of breath. However does complain of having some bilateral lower extremity edema that has worsened than before. Review of Systems 10-point ROS is otherwise unremarkable Physical Examination - Vital Signs Temperature: 98.2 F Blood Pressure: 117/56 Pulse: 58 Respirations: 16 Pulse Ox (%): 99 - Physical Exam General: Alert, In no apparent distress HEENT: Atraumatic, PERRLA, EOMI Neck: Supple, JVD not distended Respiratory: Clear to auscultation bilaterally, Normal air movement Cardiovascular: Regular rate/rhythm, Normal S1 S2 Gastrointestinal: Normal bowel sounds, No tenderness Musculoskeletal: Swelling (Bilateral lower extremity swelling with erythema noted. 3+ pitting edema noted.) Integumentary: No rashes Neurological: Normal speech, Normal tone, Normal affect Lymphatics: No axilla or inguinal lymphadenopathy - Studies Medications List Reviewed: Yes Assessment And Plan - Plan Assessment and plan 1.Kegjk-ca-pgahuxu diastolic congestive heart failure. - The patient doing well with diuresis. BNP trending down. - Continue IV Lasix twice a day. - Echocardiogram with EF of 65% and Diastolic Dysfunction - Currently on Oxygen at 1L will wean off as tolerated - Pending Improvement of BL LE Swelling. Elevated and wrap legs 2.H/o Coronary artery disease. -Cardiac enzymes were negative. Continue statin and aspirin. NORMA inhibitor. 3.History of chronic obstructive pulmonary disease, emphysema. - The patient on inhalers with Atrovent, Flonase and albuterol. - Duonebs 4.Hypertension, well controlled -Hold meds due to aggressive diuresis 5.History of metastatic prostate cancer. -The patient on Lupron and Casodex. -Casodex not available in the pharmacy, we will hold that until discharge and the patient can resume it. Dispo: Awaiting clinical improvement at this time. Improvement in bilateral lower extremity swelling pending at this time. Will try to wean off of oxygen at this time. Once patient is saturating well on room air working with physical therapy and able to ambulate, have inadequate diet will discharge patient home. Anticipate discharge in 24-48 hr. Discharge Plan: Home Plan to discharge in: 24 Hours - Code Status/Comfort Care Code Status Assessed: Yes Critical Care: No
[2018-05-30] MEDS: ENOXAPARIN 40 MG/0.4 ML SQ SCH (16:53)
[2018-05-30] MEDS: ATORVASTATIN 80 MG TAB PO SCH (20:26)
[2018-05-31] MEDS: IPRATROPIUM BROM 0.5MG/2.5ML NEB SCH ×3 (01:24→14:10)
[2018-05-31] MEDS: ALBUTEROL 2.5 MG/3 ML NEB SOL NEB SCH ×3 (01:24→14:10)
[2018-05-31 04:50] LABS: Phosphorus 3.6 mg/dL (2.5-4.9); Potassium 3.8 mmol/L (3.5-5.1)
[2018-05-31 05:13] VITALS: BMI 40.9
[2018-05-31] MEDS ORDERED: POTASSIUM 25 MEQ EFFERV TAB PO ONE (05:20)
[2018-05-31] MEDS: CARVEDILOL 25 MG TAB PO SCH ×2 (05:58→17:57)
[2018-05-31] MEDS: CLOPIDOGREL 75 MG TABLET PO SCH (09:47)
[2018-05-31] MEDS: Symbicort 160-4.5 Mcg Inhaler IH SCH (09:47)
[2018-05-31] MEDS: ASPIRIN 81 MG CHEWABLE TABLET PO SCH (09:47)
[2018-05-31] MEDS: RANITIDINE 150 MG TABLET PO SCH (09:47)
[2018-05-31] MEDS: FUROSEMIDE 40 MG/4 ML VIAL IV SCH ×2 (09:47→17:56)
[2018-05-31] MEDS: LISINOPRIL 20 MG TAB PO SCH (09:47)
[2018-05-31] MEDS: BICALUTAMIDE 50 MG TABLET PO SCH (09:47)
[2018-05-31] MEDS: AMLODIPINE 10 MG TAB PO SCH (09:47)
[2018-05-31] MEDS: FLUOXETINE 20 MG CAP PO SCH (09:47)
[2018-05-31] MEDS: MONTELUKAST 10 MG TAB PO SCH (09:47)
[2018-05-31] MEDS: FLUTICASONE 50MCG NASAL SPRAY NAS SCH (09:47)
--- NOTE | 2018-05-31 15:57 | P.DS ---
Admission Date: 05/27/18 Discharge Date: 05/31/18 Disposition: ROUTINE DISCHARGE Discharge Condition: GOOD Reason for Admission: SOB Brief History of Present Illness: This is a 72-year-old gentleman with history of coronary artery disease, COPD, emphysema, diabetes mellitus, prostate cancer, chronic diastolic CHF, who presented with progressive shortness of breath that started 3 days ago with progressive lower extremity edema. In the ER, patient was evaluated and chest x -ray interestingly was unremarkable but BNP was around 6000. The patient was started on IV Lasix. Admitted for further diuresis. His troponin was less than 0.02. He is currently feeling somewhat better. He ate his lunch, and he denies any chest pain or abdominal pain. Hospital Course: Discharge diagnosis: 1.Bafft-rl-vbxbpmy diastolic congestive heart failure. 2.H/o Coronary artery disease. 3.History of chronic obstructive pulmonary disease, emphysema. 4.Hypertension, well controlled 5.History of metastatic prostate cancer. Hospital Course Overall during the hospital stay patient remained stable Patient was initially admitted to the hospital for shortness of breath most likely secondary acute on chronic diastolic congestive heart failure. Patient was started on IV Lasix while here in the hospital. Patient improved markedly well and was successfully weaned off of oxygen while here in the hospital and was able to breathe properly. Patient was also able to ambulate and have proper oral intake at that time his Lasix was switched over to oral Lasix. Cardiology was consulted who recommended echocardiogram to be done here in the hospital. Patient had an echo done which was consistent with diastolic dysfunction and ejection fraction of 65%. Patient was then discharged home under stable condition once he had improvement in his symptoms and was asked to follow up with cardiology in about 1-2 weeks post discharge. Patient was given a p.o. Lasix to go home with. And was asked to continue taking his beta- emily at this time as well. Patient was notified that he might need to have frequent visits to his cardiology and his primary care doctor to make sure that he is not having worsening of his congestive heart failure and frequent exacerbations leading to admissions here in the hospital. Patient demonstrated understanding and thus was discharged home under stable condition. Vital Signs/Physical Exam: Temp Pulse Resp BP Pulse Ox 97.5 F 60 18 116/58 L 97 05/31/18 12:00 05/31/18 12:00 05/31/18 12:00 05/31/18 12:00 05/31/18 12:00 General: Alert, In no apparent distress HEENT: Atraumatic, PERRLA, EOMI Neck: Supple, JVD not distended Respiratory: Clear to auscultation bilaterally, Normal air movement Cardiovascular: Regular rate/rhythm, Normal S1 S2 Gastrointestinal: Normal bowel sounds, No tenderness Musculoskeletal: No tenderness Integumentary: No rashes Neurological: Normal speech, Normal tone, Normal affect Lymphatics: No axilla or inguinal lymphadenopathy Laboratory Data at Discharge: WBC 4.4 K/uL (4.3-10.9) 05/27/18 16:32 Hgb 8.1 g/dL (13.6-17.9) L 05/27/18 16:32 Hct 25.0 % (39.6-49.0) L 05/27/18 16:32 Plt Count 201 K/uL (152-406) 05/27/18 16:32 PT 13.5 SECONDS (9.5-12.5) H 05/27/18 09:45 INR 1.14 05/27/18 09:45 Sodium 141 mmol/L (136-145) 05/31/18 03:30 Potassium 3.8 mmol/L (3.5-5.1) 05/31/18 03:30 BUN 23 mg/dL (7-18) H 05/31/18 03:30 Creatinine 0.90 mg/dL (0.55-1.3) 05/31/18 03:30 Glucose 92 mg/dL (74-106) 05/31/18 03:30 Phosphorus 3.6 mg/dL (2.5-4.9) 05/31/18 03:30 Magnesium 2.1 mg/dL (1.8-2.4) 05/29/18 05:35 Total Bilirubin 0.8 mg/dL (0.2-1.0) 05/28/18 16:25 AST 22 U/L (15-37) 05/28/18 16:25 ALT 24 U/L (12-78) 05/28/18 16:25 Alkaline Phosphatase 569 U/L (45-117) H 05/28/18 16:25 Troponin I < 0.02 ng/mL (0.0-0.045) 05/28/18 08:20 Home Medications: RX: Aspirin [Ginna Chewable Aspirin] 81 mg PO DAILY 01/14/16 RX: Atorvastatin Calcium [Lipitor] 80 mg PO BEDTIME 01/14/16 RX: Fluoxetine HCl [Prozac] 40 mg PO DAILY 01/14/16 RX: Furosemide [Lasix*] 80 mg PO BID 01/14/16 RX: Magnesium Oxide [Magnesium] 1 cap PO DAILY 03/11/16 RX: Amlodipine [Norvasc*] 10 mg PO DAILY 02/08/18 RX: Carvedilol [Coreg] 25 mg PO TID 02/08/18 RX: Clopidogrel Bisulfate [Clopidogrel] 75 mg PO DAILY 02/08/18 RX: Montelukast [Singulair*] 10 mg PO DAILY 02/08/18 RX: Ranitidine HCl [Zantac] 300 mg PO BID 02/08/18 RX: Bicalutamide 50 mg PO DAILY 05/27/18 RX: Budesonide/Formoterol Fumarate [Symbicort 160-4.5 Mcg Inhaler] 2 inh IH BID 05/27/18 RX: Fluocinolone Acetonide [Synalar] 1 dontrell TOP PRN 05/27/18 RX: Fluticasone [Flonase 50MCG Nasal [place]*] 1 spray IH PRN 05/27/18 RX: Lisinopril [Prinivil*] 40 mg PO DAILY 05/27/18 RX: Triamcinolone 0.1% Crm [Kenalog 0.1% Cream*] 1 dontrell TOP PRN 05/27/18 Patient Discharge Instructions: Please f.u with PCP and Cardiology in 1 to 2 week post discharge. Continue all medication as prescribed Diet: Regular Activity: Ad shabana Followup: Anupam Hood MD [ACTIVE - CAN ADMIT] - 1 Week
[2018-05-31 17:27] VITALS: BP 136/69; TEMP 97.8
[2018-05-31] MEDS: ENOXAPARIN 40 MG/0.4 ML SQ SCH (17:56)
[2018-05-31 20:15] VITALS: O2SAT 96
== END 2018-05-31 18:56 | disposition home or self-care (01) | DRG 292 ==
LOC: ER 09:24 → ERHOLD 10:37 → 4TH 12:42
PROVIDERS: ADMIT Internal Medicine; ATTEND Internal Medicine
DX: I11.0 Hypertensive heart disease with heart failure (principal); C79.51 Secondary malignant neoplasm of bone; I50.33 Acute on chronic diastolic (congestive) heart failure; I25.10 Atherosclerotic heart disease of native coronary artery without angina pectoris; J44.9 Chronic obstructive pulmonary disease, unspecified; L30.9 Dermatitis, unspecified; Z88.0 Allergy status to penicillin; Z95.5 Presence of coronary angioplasty implant and graft; Z85.46 Personal history of malignant neoplasm of prostate
CPT/HCPCS: 36415; 71045; 71046; 80048; 80053; 80076; 81003; 82550; 82553; 83735; 83880; 84100; 84484; 85025; 85610; 93005; 93306; 94640; 96374; 97163; 99285; J1650

== ENCOUNTER 2018-09-10 14:03 | Emergency (ER) | payer OTHER ==
--- NOTE | 2018-09-10 15:53 | EDPHYS ---
Physician Documentation [facility] Name: Frank Abernathy Age: 73 yrs Sex: Male : 1945 Arrival Date: 09/10/2018 Time: 14:06 Bed 26 Private MD: ED Physician Samir Damico HPI: 09/10 15:49 This 73 yrs old Male presents to ER via Wheelchair with complaints of Fall nh Injury, Shoulder Pain. 15:49 Details of fall: The patient fell from an upright position, while walking. Onset: The nh symptoms/episode began/occurred acutely, just prior to arrival. Associated injuries: The patient sustained right elbow and left arm, abrasion, contusion, anterior aspect of right shoulder, contusion, painful injury. Severity of symptoms: At their worst the symptoms were moderate, just prior to arrival, in the emergency department the symptoms are unchanged. The patient has not experienced similar symptoms in the past. The patient has not recently seen a physician. Historical: - Allergies: 14:14 Amoxicillin; tw2 14:14 Zithromax; tw2 - PMHx: 14:14 bone cancer- getting injections 2018; Sleep Apnea; Prostate Cancer; Myocardial tw2 infarction; Hyperlipidemia; Anemia; CAD; Chronic Kidney Disease - Stage 3; COPD; Depression; Diabetes - NIDDM; GERD; Hypertension; lymphedema; - Immunization history:: Adult Immunizations up to date. - Social history:: Smoking status: . - Ebola Screening: : Patient denies travel to an Ebola-affected area in the 21 days before illness onset. ROS: 15:49 Constitutional: Negative for fever, chills, and weight loss, Eyes: Negative for injury, nh pain, redness, and discharge, ENT: Negative for injury, pain, and discharge, Neck: Negative for injury, pain, and swelling, Cardiovascular: Negative for chest pain, palpitations, and edema, Respiratory: Negative for shortness of breath, cough, wheezing, and pleuritic chest pain, Abdomen/GI: Negative for abdominal pain, nausea, vomiting, diarrhea, and constipation, Back: Negative for injury and pain, : Negative for injury, bleeding, discharge, and swelling, Skin: Negative for injury, rash, and discoloration, Neuro: Negative for headache, weakness, numbness, tingling, and seizure, Psych: Negative for depression, anxiety, suicide ideation, homicidal ideation, and hallucinations, Allergy/Immunology: Negative for hives, rash, and allergies, Endocrine: Negative for neck swelling, polydipsia, polyuria, polyphagia, and marked weight changes, Hematologic/Lymphatic: Negative for swollen nodes, abnormal bleeding, and unusual bruising. 15:49 MS/extremity: Positive for contusion, pain, tenderness. Exam: 15:49 Constitutional: This is a well developed, well nourished patient who is awake, alert, nh and in no acute distress. Head/Face: Normocephalic, atraumatic. Eyes: Pupils equal round and reactive to light, extra-ocular motions intact. Lids and lashes normal. Conjunctiva and sclera are non-icteric and not injected. Cornea within normal limits. Periorbital areas with no swelling, redness, or edema. ENT: Nares patent. No nasal discharge, no septal abnormalities noted. Tympanic membranes are normal and external auditory canals are clear. Oropharynx with no redness, swelling, or masses, exudates, or evidence of obstruction, uvula midline. Mucous membranes moist. Neck: Trachea midline, no thyromegaly or masses palpated, and no cervical lymphadenopathy. Supple, full range of motion without nuchal rigidity, or vertebral point tenderness. No Meningismus. Chest/axilla: Normal chest wall appearance and motion. Nontender with no deformity. No lesions are appreciated. Cardiovascular: Regular rate and rhythm with a normal S1 and S2. No gallops, murmurs, or rubs. Normal PMI, no JVD. No pulse deficits. Respiratory: Lungs have equal breath sounds bilaterally, clear to auscultation and percussion. No rales, rhonchi or wheezes noted. No increased work of breathing, no retractions or nasal flaring. Abdomen/GI: Soft, non-tender, with normal bowel sounds. No distension or tympany. No guarding or rebound. No evidence of tenderness throughout. Back: No spinal tenderness. No costovertebral tenderness. Full range of motion. Skin: Warm, dry with normal turgor. Normal color with no rashes, no lesions, and no evidence of cellulitis. Neuro: Awake and alert, GCS 15, oriented to person, place, time, and situation. Cranial nerves II-XII grossly intact. Motor strength 5/5 in all extremities. Sensory grossly intact. Cerebellar exam normal. Normal gait. Psych: Awake, alert, with orientation to person, place and time. Behavior, mood, and affect are within normal limits. 15:49 Musculoskeletal/extremity: Extremities: noted in the anterior aspect of right shoulder and right elbow: contusion, pain, tenderness, ROM: intact in all extremities, Circulation is intact in all extremities. Sensation intact. Vital Signs: 14:13 BP 129 / 74; Pulse 79; Resp 17; Temp 97.6(O); Pulse Ox 99% on R/A; Pain 3/10; tw2 15:27 BP 122 / 76; Pulse 81; Resp 17; Pulse Ox 99% on R/A; Pain 3/10; ed1 16:35 BP 124 / 76; Pulse 83; Resp 17; Pulse Ox 99% on R/A; Pain 3/10; ed1 Procedures: 15:49 Splinting: Splint applied to anterior aspect of right shoulder using sling, applied by ia tech. Examined by me, post splint application: neurovascular intact, 2+ distal pulses palpable, brisk capillary refill noted, Patient tolerated well. MDM: 14:27 Patient medically screened. ia 15:49 Data reviewed: vital signs, nurses notes, radiologic studies, I have discussed the ia patient's presentation/case with the attending Emergency Department Physician; and as a result, I will discharge patient. Counseling: I had a detailed discussion with the patient and/or guardian regarding: the historical points, exam findings, and any diagnostic results supporting the discharge/admit diagnosis, radiology results, the need for outpatient follow up, to return to the emergency department if symptoms worsen or persist or if there are any questions or concerns that arise at home. 09/10 14:39 Order name: Elbow Right 3 View XRAY ia 09/10 14:39 Order name: Humerus Right XRAY ia 09/10 14:39 Order name: Shoulder Right 2 View EDMS Administered Medications: No medications were administered Disposition: 18:44 Co-signature as Attending Physician, Samir Damico MD. rn Disposition: 09/10/18 15:52 Discharged to Home. Impression: Contusion of right shoulder. - Condition is Stable. - Discharge Instructions: Shoulder Pain. - Medication Reconciliation Form, Thank You Letter, Antibiotic Education, Prescription Opioid Use form. - Follow up: Private Physician; When: 2 - 3 days; Reason: Recheck today's complaints. - Problem is new. - Symptoms are unchanged. Signatures: Dispatcher [employer] EDCO Latricia Condon, NATURAL GAS PLANT SUPERVISOR NATURAL GAS PLANT SUPERVISOR ia Samir Damico MD MD rn Riggs, Erika, WILLIAM FIRST ASSISTANT MANAGER ed1 Maggy Day RN RN tw2 Corrections: (The following items were deleted from the chart) 15:10 14:39 Shoulder Right 2 View+RAD.RAD.BRZ ordered. [facility] 16:37 15:52 09/10/2018 15:52 Discharged to Home. Impression: Contusion of right shoulder. ed1 Condition is Stable. Forms are Medication Reconciliation Form, Thank You Letter, Antibiotic Education, Prescription Opioid Use. Follow up: Private Physician; When: 2 - 3 days; Reason: Recheck today's complaints. Problem is new. Symptoms are unchanged. nh
--- NOTE | 2018-09-10 15:53 | ER ---
Nurse's Notes [facility] Name: Frank Abernathy Age: 73 yrs Sex: Male : 1945 Arrival Date: 09/10/2018 Time: 14:06 Bed 26 Private MD: Diagnosis: Contusion of right shoulder Presentation: 09/10 14:12 Presenting complaint: Patient states: i fell on my right shoulder and elbow about 15 tw2 minutes, from standing onto concrete. Transition of care: patient was not received from another setting of care. Onset of symptoms was September 10, 2018. Risk Assessment: Do you want to hurt yourself or someone else? Patient reports no desire to harm self or others. Initial Sepsis Screen: Does the patient meet any 2 criteria? No. Patient's initial sepsis screen is negative. Does the patient have a suspected source of infection? No. Patient's initial sepsis screen is negative. Care prior to arrival: None. 14:12 Method Of Arrival: Wheelchair tw2 14:12 Acuity: CHRISTI 4 tw2 Triage Assessment: 14:14 General: Appears in no apparent distress. Behavior is calm, cooperative, appropriate tw2 for age. Pain: Complains of pain in right shoulder and right elbow. 14:15 General: pt denies hitting head, and reports scratch on right elbow. tw2 Historical: - Allergies: 14:14 Amoxicillin; tw2 14:14 Zithromax; tw2 - PMHx: 14:14 bone cancer- getting injections 2018; Sleep Apnea; Prostate Cancer; Myocardial tw2 infarction; Hyperlipidemia; Anemia; CAD; Chronic Kidney Disease - Stage 3; COPD; Depression; Diabetes - NIDDM; GERD; Hypertension; lymphedema; - Immunization history:: Adult Immunizations up to date. - Social history:: Smoking status: . - Ebola Screening: : Patient denies travel to an Ebola-affected area in the 21 days before illness onset. Screenin:20 Abuse screen: Denies threats or abuse. Denies injuries from another. Nutritional ed1 screening: No deficits noted. Tuberculosis screening: No symptoms or risk factors identified. Fall Risk Fall in past 12 months (25 points). No secondary diagnosis (0 pts). No IV (0 pts). Ambulatory Aid- None/Bed Rest/Nurse Assist (0 pts). Gait- Normal/Bed Rest/Wheelchair (0 pts) Mental Status- Oriented to own ability (0 pts). Total Slater Fall Scale indicates Low Risk Score (25-44 pts). Fall prevention measures have been instituted. Side Rails Up X 2 Frequent Obs/Assesments occuring Family Present and informed to notify staff if they need to leave bedside As available Patient and Family Educated on Fall Prevention Program and strategies. Assessment: 15:27 Reassessment: Patient appears in no apparent distress at this time. No changes from ed1 previously documented assessment. Patient and/or family updated on plan of care and expected duration. Pain level reassessed. Patient is alert, oriented x 3, equal unlabored respirations, skin warm/dry/pink. 16:35 Reassessment: Patient appears in no apparent distress at this time. No changes from ed1 previously documented assessment. Patient and/or family updated on plan of care and expected duration. Pain level reassessed. Patient is alert, oriented x 3, equal unlabored respirations, skin warm/dry/pink. Vital Signs: 14:13 BP 129 / 74; Pulse 79; Resp 17; Temp 97.6(O); Pulse Ox 99% on R/A; Pain 3/10; tw2 15:27 BP 122 / 76; Pulse 81; Resp 17; Pulse Ox 99% on R/A; Pain 3/10; ed1 16:35 BP 124 / 76; Pulse 83; Resp 17; Pulse Ox 99% on R/A; Pain 3/10; ed1 ED Course: 14:06 Patient arrived in ED. tw3 14:13 Triage completed. tw2 14:13 Arm band placed on. tw2 14:16 Trinidad Resendiz LVN is Primary Nurse. ed1 14:20 Awaiting ED provider evaluation. ed1 14:20 Patient has correct armband on for positive identification. Bed in low position. Call ed1 light in reach. Side rails up X2. Adult w/ patient. Pulse ox on. NIBP on. Warm blanket given. 14:27 Latricia Condon FNP is PHCP. nh 14:27 Samir Damico MD is Attending Physician. nh 15:27 Shoulder Right 2 View In Process Unspecified. EDMS 15:27 Elbow Right 3 View XRAY In Process Unspecified. EDMS 15:27 Humerus Right XRAY In Process Unspecified. EDMS 16:35 No provider procedures requiring assistance completed. Patient did not have IV access ed1 during this emergency room visit. Sling applied to right arm. Administered Medications: No medications were administered Outcome: 15:52 Discharge ordered by . pa 16:35 Discharged to home ambulatory, with family. ed1 16:35 Condition: good 16:35 Discharge instructions given to patient, Instructed on discharge instructions, follow up and referral plans. Demonstrated understanding of instructions, follow-up care. 16:37 Patient left the ED. ed1 Signatures: Dispatcher [employer] EDMS Latricia Condon, INFORMATION ARCHITECT INFORMATION ARCHITECT pa Trinidad Resendiz, RELEASE OF INFORMATION CLERK RELEASE OF INFORMATION CLERK ed1 Maggy Day, RN RN tw2 Patrice, Rylee tw3
--- NOTE | 2018-09-10 16:08 | RAD REPORT ---
EXAM DESCRIPTION: RAD - Shoulder Right 2 View - 09/10/2018 3:31 pm CLINICAL HISTORY: PAIN Pain, swelling, right arm COMPARISON: Humerus Right dated 09/10/2018; Elbow Right 3 View dated 09/10/2018; Bone Imaging Whole Body dated 03/27/2018; Abdomen Pelvis W Contrast dated 03/27/2018; Thorax W/ Con dated 02/09/2018 FINDINGS: Right shoulder, right humerus and right elbow - multiple projections are submitted. Extensive blastic bony metastatic lesions are present. No fracture or dislocation is identified. AC j oint moderate degenerative changes are present.
[2018-09-10 16:42] VITALS: TEMP 97.6; O2SAT 99
[2018-09-10 16:45] VITALS: BP 124/76
--- NOTE | 2018-09-11 11:23 | RAD REPORT ---
EXAM DESCRIPTION: RAD - Elbow Right 3 View - 09/10/2018 3:31 pm CLINICAL HISTORY: PAIN Pain, swelling, right arm COMPARISON: Humerus Right dated 09/10/2018; Elbow Right 3 View dated 09/10/2018; Bone Imaging Whole Body dated 03/27/2018; Abdomen Pelvis W Contrast dated 03/27/2018; Thorax W/ Con dated 02/09/2018 FINDINGS: Right shoulder, right humerus and right elbow - multiple projections are submitted. Extensive blastic bony metastatic lesions are present. No fracture or dislocation is identified. AC j oint moderate degenerative changes are present.
--- NOTE | 2018-09-11 11:24 | RAD REPORT ---
EXAM DESCRIPTION: RAD - Humerus Right - 09/10/2018 3:31 pm CLINICAL HISTORY: PAIN Pain, swelling, right arm COMPARISON: Humerus Right dated 09/10/2018; Elbow Right 3 View dated 09/10/2018; Bone Imaging Whole Body dated 03/27/2018; Abdomen Pelvis W Contrast dated 03/27/2018; Thorax W/ Con dated 02/09/2018 FINDINGS: Right shoulder, right humerus and right elbow - multiple projections are submitted. Extensive blastic bony metastatic lesions are present. No fracture or dislocation is identified. AC j oint moderate degenerative changes are present.
== END 2018-09-10 16:37 | disposition home or self-care (01) ==
LOC: ER 14:03
DX: S40.011A Contusion of right shoulder, initial encounter (principal); W19.XXXA Unspecified fall, initial encounter; Y93.01 Activity, walking, marching and hiking; Y92.9 Unspecified place or not applicable; Z88.1 Allergy status to other antibiotic agents; Z85.46 Personal history of malignant neoplasm of prostate; C41.9 Malignant neoplasm of bone and articular cartilage, unspecified; E11.22 Type 2 diabetes mellitus with diabetic chronic kidney disease; I12.9 Hypertensive chronic kidney disease with stage 1 through stage 4 chronic kidney disease, or unspecified chronic kidney disease; N18.3 Chronic kidney disease, stage 3 (moderate); I25.2 Old myocardial infarction
CPT/HCPCS: 99283

== ENCOUNTER 2018-12-04 17:53 | Observation (INO) | payer OTHER ==
--- NOTE | 2018-12-04 19:11 | RAD REPORT ---
EXAM DESCRIPTION: CT - Ct Stroke Brain Wo Cont - 12/04/2018 6:58 pm CLINICAL HISTORY: WEAKNESS Headache, drowsiness, CVA COMPARISON: No comparisons TECHNIQUE: All CT scans are performed using dose optimization technique as appropriate and may inclu de automated exposure control or mA/KV adjustment according to patient size. FINDINGS: No intracranial hemorrhage, hydrocephalus or extra-axial fluid collection.Mild generalized brain atrophy is present with mild periventricular and deep white matter chronic microvascular ische abbie changes.No areas of brain edema or evidence of midline shift. The paranasal sinuses and mastoids are clear. The calvarium is intact. IMPRESSION: No acute intracranial abnormality. Dr. Contreras in the ER was notified On 12/04/2018 at 7:05 p.m..
--- NOTE | 2018-12-04 19:32 | RAD REPORT ---
EXAM DESCRIPTION: MRI - Brain Wo Cont - 12/04/2018 7:20 pm CLINICAL HISTORY: WEAKNESS Headache, drowsiness, CVA COMPARISON: Ct Stroke Brain Wo Cont dated 12/04/2018 TECHNIQUE: Multi-sequence, multiplanar MR imaging of the brain was performed without contrast. FINDINGS: No intracranial hemorrhage, hydrocephalus or extra-axial fluid collections.Mild confluent T2/FLAIR hyperintensity in the periventricular and deep white matter is present compatible with chron ic microvascular ischemic changes. No edema or shift of midline structures. No findings to suspect br ain mass. DWI is negative for acute CVA. Midline structures are normally formed. Mastoid air cells and paranasal sinuses are clear. IMPRESSION: Negative for acute CVA or other acute intracranial process.
[2018-12-04] MEDS ORDERED: FOLIC ACID 5 MG/ML VIAL ONE (19:50)
[2018-12-04] MEDS ORDERED: NA CHLORIDE 0.9% 50 ML IV ONE (19:51)
[2018-12-04] MEDS ORDERED: NA CHLORIDE 0.9% 1,000 ML ONE (19:51)
[2018-12-04 19:59] LABS: Absolute Lymphocytes (CBC) 0.7 K/uL (0.7-4.9); Absolute Monocytes 0.5 K/uL (0.1-1.3); Absolute Neutrophil 4.3 K/uL (1.8-8.0); Basophils % 0.6 % (0-1.3); Eosinophils % 1.4 % (0-4.4); Hematocrit 29.2 % (39.6-49.0); MPV 7.4 fL (7.6-11.3); Monocytes % 9.6 % (3.3-12.3); RBC Red Blood Cell Count 3.33 M/uL (4.33-5.43)
[2018-12-04 20:08] LABS: Protime INR 0.94
--- NOTE | 2018-12-04 20:19 | RAD REPORT ---
EXAM DESCRIPTION: RAD - Chest Single View - 12/04/2018 8:07 pm CLINICAL HISTORY: COUGH Chest pain. COMPARISON: Chest Pa And Lat (2 Views) dated 05/28/2018; Chest Single View dated 05/27/2018; Chest Sin gle View dated 02/09/2018; Chest Single View dated 02/07/2018; Bone Imaging Whole Body dated 03/27/2018 FINDINGS: Portable technique limits examination quality. The lungs are grossly clear. The heart is mildly prominent size. Extensive sclerotic changes througho ut the visualized is compatible with known diffuse bony metastatic disease.
[2018-12-04 20:23] LABS: ALT/SGPT 28 U/L (12-78); AST/SGOT 33 U/L (15-37); Albumin 3.9 g/dL (3.4-5.0); Alkaline Phosphatase 758 U/L (45-117); BUN Blood Urea Nitrogen 41 mg/dL (7-18); Bicarbonate 25 mmol/L (21-32); Bilirubin Direct 0.1 mg/dL (0-0.2); Bilirubin Total 0.5 mg/dL (0.2-1.0); C-Reactive Protein < 2.90 mg/L (<3.00); Glucose Level 83 mg/dL (74-106); Lipase 150 U/L (73-393); Magnesium 2.4 mg/dL (1.8-2.4); NT PRO-BNP 778 pg/mL (<125); Potassium 4.8 mmol/L (3.5-5.1); Protein, Total 7.5 g/dL (6.4-8.2); Sodium Level 128 mmol/L (136-145); Troponin (Emerg Dept Use Only) < 0.02 ng/mL (0.0-0.045)
--- NOTE | 2018-12-04 21:21 | ER ---
Nurse's Notes [facility] Name: Frank Abernathy Age: 73 yrs Sex: Male : 1945 Arrival Date: 12/04/2018 Time: 17:59 Bed 6 Private MD: Diagnosis: 2nd degree AV block;Dehydration;Hyponatremia;TIA;Chest Pain Presentation: 12/04 17:59 Presenting complaint: EMS states: CURRENT DIZZINESS AND 10 MINUTE EPISODE OF LEFT bp PARASTHESIA \[id number]. Transition of care: patient was not received from another setting of care. Onset of symptoms was December 04, 2018 at 17:00. Risk Assessment: Do you want to hurt yourself or someone else? Patient reports no desire to harm self or others. Initial Sepsis Screen: Does the patient meet any 2 criteria? No. Patient's initial sepsis screen is negative. Does the patient have a suspected source of infection? No. Patient's initial sepsis screen is negative. Care prior to arrival: IV initiated. 20 GA, in the right antecubital area. 17:59 Method Of Arrival: EMS: [facility] bp 17:59 Acuity: CHRISTI 2 bp Triage Assessment: 18:02 General: Appears in no apparent distress. comfortable, Behavior is calm, cooperative, bp appropriate for age. Pain: Denies pain. Historical: - Allergies: 18:02 Amoxicillin; bp 18:02 Zithromax; bp 18:02 PENICILLINS; bp - Home Meds: 19:30 amlodipine 10 mg tab 1 tab once daily [Active]; atorvastatin 80 mg Oral tab 1 tab once cc3 daily [Active]; Ginna Aspirin 81mg Oral [Active]; bicalutamide 50 mg Oral tab 1 tab once daily [Active]; carvedilol 25 mg Oral tab 1 tab three times a day [Active]; clopidogrel 75 mg Oral tab 1 tab once daily [Active]; fluocinolone 0.01 % Topical crea [Active]; fluoxetine 40 mg Oral cap 1 cap once daily [Active]; fluticasone 50 mcg/actuation nasal spsn as needed [Active]; furosemide 80 mg Oral tab once daily [Active]; lisinopril 40 mg Oral tab 1 tab once daily [Active]; magnesium oxide 400 mg Oral cap daily [Active]; montelukast 10 mg Oral tab [Active]; ranitidine HCl 300 mg Oral tab 1 tab 2 times per day [Active]; Symbicort 160-4.5 mcg/actuation inhalation HFAA 2 puffs 2 times per day [Active]; Triamcinolone Acetonide Topical [Active]; - PMHx: 18:02 Anemia; bone cancer- getting injections 2017; Chronic Kidney Disease - Stage 3; COPD; bp Depression; Diabetes - NIDDM; GERD; Hyperlipidemia; Hypertension; lymphedema; CAD; Myocardial infarction; Prostate Cancer; Sleep Apnea; - Immunization history:: Adult Immunizations up to date. - Social history:: Smoking status: Patient/guardian denies using tobacco. - Ebola Screening: : Patient negative for fever greater than or equal to 101.5 degrees Fahrenheit, and additional compatible Ebola Virus Disease symptoms Patient denies exposure to infectious person Patient denies travel to an Ebola-affected area in the 21 days before illness onset No symptoms or risks identified at this time. - Family history:: not pertinent. Screenin:04 Abuse screen: Denies threats or abuse. Denies injuries from another. Nutritional bp screening: No deficits noted. Tuberculosis screening: No symptoms or risk factors identified. Fall Risk None identified. Assessment: 19:30 General: Appears in no apparent distress. comfortable, Behavior is calm, cooperative, cc3 appropriate for age. Pain: Denies pain. Neuro: Level of Consciousness is awake, alert, obeys commands, Oriented to person, place, time, situation, Appropriate for age. Cardiovascular: Patient's skin is warm and dry. Respiratory: Airway is patent Respiratory effort is even, unlabored, Respiratory pattern is regular, symmetrical. GI: Abdomen is round obese. : No signs and/or symptoms were reported regarding the genitourinary system. EENT: No signs and/or symptoms were reported regarding the EENT system. Derm: No signs and/or symptoms reported regarding the dermatologic system. Musculoskeletal: Range of motion: intact in all extremities. 19:30 Reassessment: Patient just came back from CT scan department, noted with IV cannula cc3 gauge 20 at the right ACV saline locked. 20:18 Reassessment: Patient appears in no apparent distress at this time. Patient and/or cc3 family updated on plan of care and expected duration. Pain level reassessed. Patient is alert, oriented x 3, equal unlabored respirations, skin warm/dry/pink. 21:25 Reassessment: Patient appears in no apparent distress at this time. Patient and/or cc3 family updated on plan of care and expected duration. Pain level reassessed. Patient is alert, oriented x 3, equal unlabored respirations, skin warm/dry/pink. 22:02 Reassessment: Patient appears in no apparent distress at this time. Patient and/or cc3 family updated on plan of care and expected duration. Pain level reassessed. Patient is alert, oriented x 3, equal unlabored respirations, skin warm/dry/pink. 23:08 Reassessment: Patient appears in no apparent distress at this time. Patient and/or cc3 family updated on plan of care and expected duration. Pain level reassessed. Patient is alert, oriented x 3, equal unlabored respirations, skin warm/dry/pink. Room available in 423, called for report but was told that the nurse who will receive will just call me back. 23:30 Reassessment: RN Melsisa Yost called and report given to her for continuity of care and cc3 management. 23:40 Reassessment: Patient left ER for admission vitally stable by stretcher escorted by ED cc3 gladys Hassan and the patient's daughter in law. Vital Signs: 18:02 BP 141 / 77; Pulse 72; Resp 12; Temp 97.8; Pulse Ox 98% ; Weight 122.47 kg; Height 5 bp ft. 8 in. (172.72 cm); 19:40 BP 130 / 69; Pulse 73; Resp 15 S; Pulse Ox 96% on R/A; cc3 20:15 BP 136 / 64; Pulse 72; Resp 19 S; Pulse Ox 96% on R/A; cc3 21:32 BP 136 / 73; Pulse 76; Resp 20 S; Pulse Ox 98% on R/A; cc3 22:18 BP 135 / 73; Pulse 72; Resp 18 S; Pulse Ox 97% on R/A; cc3 23:04 BP 129 / 76; Pulse 72; Resp 18 S; Pulse Ox 96% on R/A; cc3 18:02 Body Mass Index 41.05 (122.47 kg, 172.72 cm) bp ED Course: 17:59 Patient arrived in ED. bp 18:01 Triage completed. bp 18:02 Arm band placed on. bp 18:04 Patient has correct armband on for positive identification. Bed in low position. Call bp light in reach. Side rails up X2. Adult w/ patient. 18:04 Maintain EMS IV. Dressing intact. Good blood return noted. Site clean \T\ dry. Gauge \T\ bp site: 20 GAUGE R AC. 18:36 Antione Contreras MD is Attending Physician. norma 18:36 Nixon Salgado, RN is Primary Nurse. bp 18:57 Jas Allen PA is PHCP. jm 18:58 CT Stroke Brain w/o Contrast In Process Unspecified. EDMS 19:09 Brain Wo Cont In Process Unspecified. EDMS 19:51 EKG done, by ED staff, reviewed by Jas VARGHESE. ag4 20:00 IV discontinued, intact, bleeding controlled, No redness/swelling at site. Pressure cc3 dressing applied. 20:06 Inserted saline lock: 20 gauge in right forearm, using aseptic technique. Blood ag4 collected. 20:08 XRAY Chest (1 view) In Process Unspecified. EDMS 21:19 Dave Danielle MD is Hospitalizing Provider. [facility] 23:30 No provider procedures requiring assistance completed. Patient admitted, IV remains in cc3 place. Administered Medications: 20:00 Drug: NS 0.9% 1000 ml Route: IV; Rate: 1 bolus; Site: right antecubital; cc3 21:30 Follow up: Response: No adverse reaction; IV Status: Completed infusion; IV Intake: cc3 1000ml 20:00 Drug: foLIC Acid 1 mg Route: IVPB; Site: right hand; cc3 20:30 Follow up: Response: No adverse reaction; IV Status: Completed infusion cc3 Intake: 21:30 IV: 1000ml; Total: 1000ml. cc3 Outcome: 21:20 Decision to Hospitalize by Provider. [facility] 23:40 Admitted to Tele accompanied by tech, family with patient, via stretcher, room 423, cc3 with chart, Report called to Melissa Yost 23:40 Condition: stable 23:40 Instructed on the need for admit, Demonstrated understanding of instructions. 23:47 Patient left the ED. cc3 Signatures: Dispatcher [employer] EDMI Antione Contreras MD MD cha Mickail, Joel, PA PA Nixon Herbetr, RN RN Miryam Giang cc3 Mo Piper ag4 Corrections: (The following items were deleted from the chart) 19:58 19:40 Pulse 73bpm; Resp 15bpm; Spontaneous; Pulse Ox 96% RA; cc3 cc3
--- NOTE | 2018-12-04 21:21 | EDPHYS ---
Physician Documentation [facility] Name: Frank Abernathy Age: 73 yrs Sex: Male : 1945 Arrival Date: 12/04/2018 Time: 17:59 Bed 6 Private MD: ED Physician Antione Contreras HPI: 12/04 18:43 This 73 yrs old Male presents to ER via EMS with complaints of Dizziness. norma 18:43 The patient presents with dizziness. norma 18:44 The patient's problem is reported as weakness, in the left upper extremity, in the left norma lower extremity. Onset: The symptoms/episode began/occurred 2 hour(s) ago. Duration: This was a single incident. Context: the episode(s) was witnessed, by family. The symptoms are alleviated by nothing. The symptoms are aggravated by nothing. Onset: The symptoms/episode began/occurred 2 hour(s) ago. Context: occurred at home. Modifying factors: The symptoms are alleviated by nothing, the symptoms are aggravated by nothing. Associated signs and symptoms: Pertinent positives: numbness and weaknerss left side of body. Severity of symptoms: At their worst the symptoms were mild moderate in the emergency department the symptoms have improved mildly. Patient's baseline: Neuro: alert and fully oriented, Motor: no deficits, Ambulation: walks with assist only, Speech: normal. Historical: - Allergies: 18:02 Amoxicillin; bp 18:02 Zithromax; bp 18:02 PENICILLINS; bp - Home Meds: 19:30 amlodipine 10 mg tab 1 tab once daily [Active]; atorvastatin 80 mg Oral tab 1 tab once cc3 daily [Active]; Ginna Aspirin 81mg Oral [Active]; bicalutamide 50 mg Oral tab 1 tab once daily [Active]; carvedilol 25 mg Oral tab 1 tab three times a day [Active]; clopidogrel 75 mg Oral tab 1 tab once daily [Active]; fluocinolone 0.01 % Topical crea [Active]; fluoxetine 40 mg Oral cap 1 cap once daily [Active]; fluticasone 50 mcg/actuation nasal spsn as needed [Active]; furosemide 80 mg Oral tab once daily [Active]; lisinopril 40 mg Oral tab 1 tab once daily [Active]; magnesium oxide 400 mg Oral cap daily [Active]; montelukast 10 mg Oral tab [Active]; ranitidine HCl 300 mg Oral tab 1 tab 2 times per day [Active]; Symbicort 160-4.5 mcg/actuation inhalation HFAA 2 puffs 2 times per day [Active]; Triamcinolone Acetonide Topical [Active]; - PMHx: 18:02 Anemia; bone cancer- getting injections 2017; Chronic Kidney Disease - Stage 3; COPD; bp Depression; Diabetes - NIDDM; GERD; Hyperlipidemia; Hypertension; lymphedema; CAD; Myocardial infarction; Prostate Cancer; Sleep Apnea; - Immunization history:: Adult Immunizations up to date. - Social history:: Smoking status: Patient/guardian denies using tobacco. - Ebola Screening: : Patient negative for fever greater than or equal to 101.5 degrees Fahrenheit, and additional compatible Ebola Virus Disease symptoms Patient denies exposure to infectious person Patient denies travel to an Ebola-affected area in the 21 days before illness onset No symptoms or risks identified at this time. - Family history:: not pertinent. ROS: 18:44 Constitutional: Negative for fever, chills, and weight loss, Eyes: Negative for injury, norma pain, redness, and discharge, ENT: Negative for injury, pain, and discharge, Neck: Negative for injury, pain, and swelling, Cardiovascular: Negative for chest pain, palpitations, and edema, Respiratory: Negative for shortness of breath, cough, wheezing, and pleuritic chest pain, Abdomen/GI: Negative for abdominal pain, nausea, vomiting, diarrhea, and constipation, Back: Negative for injury and pain, : Negative for injury, bleeding, discharge, and swelling, MS/Extremity: Negative for injury and deformity, Skin: Negative for injury, rash, and discoloration, Psych: Negative for depression, anxiety, suicide ideation, homicidal ideation, and hallucinations, Allergy/Immunology: Negative for hives, rash, and allergies, Endocrine: Negative for neck swelling, polydipsia, polyuria, polyphagia, and marked weight changes, Hematologic/Lymphatic: Negative for swollen nodes, abnormal bleeding, and unusual bruising. 18:44 Neuro: Positive for weakness, of the left arm and left leg. Exam: 18:44 Constitutional: This is a well developed, well nourished patient who is awake, alert, norma and in no acute distress. Head/Face: Normocephalic, atraumatic. Eyes: Pupils equal round and reactive to light, extra-ocular motions intact. Lids and lashes normal. Conjunctiva and sclera are non-icteric and not injected. Cornea within normal limits. Periorbital areas with no swelling, redness, or edema. ENT: Nares patent. No nasal discharge, no septal abnormalities noted. Tympanic membranes are normal and external auditory canals are clear. Oropharynx with no redness, swelling, or masses, exudates, or evidence of obstruction, uvula midline. Mucous membranes moist. Neck: Trachea midline, no thyromegaly or masses palpated, and no cervical lymphadenopathy. Supple, full range of motion without nuchal rigidity, or vertebral point tenderness. No Meningismus. Chest/axilla: Normal chest wall appearance and motion. Nontender with no deformity. No lesions are appreciated. Cardiovascular: Regular rate and rhythm with a normal S1 and S2. No gallops, murmurs, or rubs. Normal PMI, no JVD. No pulse deficits. Respiratory: Lungs have equal breath sounds bilaterally, clear to auscultation and percussion. No rales, rhonchi or wheezes noted. No increased work of breathing, no retractions or nasal flaring. Abdomen/GI: Soft, non-tender, with normal bowel sounds. No distension or tympany. No guarding or rebound. No evidence of tenderness throughout. Back: No spinal tenderness. No costovertebral tenderness. Full range of motion. Male : Normal genitalia with no discharge or lesions. Skin: Warm, dry with normal turgor. Normal color with no rashes, no lesions, and no evidence of cellulitis. MS/ Extremity: Pulses equal, no cyanosis. Neurovascular intact. Full, normal range of motion. Psych: Awake, alert, with orientation to person, place and time. Behavior, mood, and affect are within normal limits. 18:44 Neuro: Orientation: is normal, Mentation: is normal, appropriate for stated age, Memory: is normal, appropriate for stated age, no acute changes, Cerebellar function: unable to test, Motor: moves all fours, Strength is 3/5 in the left arm and left leg, Sensation: no obvious gross deficits, appropriate no acute changes, Gait: not tested. Babinski testing is normal, seizure activity, is not displayed by the patient. Vital Signs: 18:02 BP 141 / 77; Pulse 72; Resp 12; Temp 97.8; Pulse Ox 98% ; Weight 122.47 kg; Height 5 bp ft. 8 in. (172.72 cm); 19:40 BP 130 / 69; Pulse 73; Resp 15 S; Pulse Ox 96% on R/A; cc3 20:15 BP 136 / 64; Pulse 72; Resp 19 S; Pulse Ox 96% on R/A; cc3 21:32 BP 136 / 73; Pulse 76; Resp 20 S; Pulse Ox 98% on R/A; cc3 22:18 BP 135 / 73; Pulse 72; Resp 18 S; Pulse Ox 97% on R/A; cc3 23:04 BP 129 / 76; Pulse 72; Resp 18 S; Pulse Ox 96% on R/A; cc3 18:02 Body Mass Index 41.05 (122.47 kg, 172.72 cm) bp MDM: 18:36 Patient medically screened. [facility] 18:58 Data reviewed: vital signs, nurses notes, lab test result(s), EKG, radiologic studies, [facility] CT scan, MRI, plain films. 21:16 Counseling: I had a detailed discussion with the patient and/or guardian regarding: the [facility] historical points, exam findings, and any diagnostic results supporting the discharge/admit diagnosis, lab results, the need for further work-up and treatment in the hospital. ED course: I discussed the patient with Dr. Danielle whom accepted admisison. 12/04 18:43 Order name: Basic Metabolic Panel; Complete Time: 20:30 [facility] 12/04 18:43 Order name: CBC with Diff; Complete Time: 20:30 [facility] 12/04 18:43 Order name: LFT's; Complete Time: 20:30 [facility] 12/04 18:43 Order name: Magnesium; Complete Time: 20:30 [facility] 12/04 18:43 Order name: NT PRO-BNP; Complete Time: 20:30 [facility] 12/04 18:43 Order name: PT-INR; Complete Time: 20:12 [facility] 12/04 18:43 Order name: Troponin (emerg Dept Use Only); Complete Time: 20:30 [facility] 12/04 18:43 Order name: Lipase; Complete Time: 20:30 [facility] 12/04 18:43 Order name: Sed Rate; Complete Time: 20:30 [facility] 12/04 18:43 Order name: CRP; Complete Time: 20:30 norma 12/04 18:43 Order name: Urine Culture [facility] 12/04 18:45 Order name: Type And Screen; Complete Time: 22:43 bd 12/04 20:32 Order name: Urine Dipstick--Ancillary (enter results); Complete Time: 22:43 ar5 12/04 22:45 Order name: CBC with Automated Diff EDMS 12/04 18:43 Order name: XRAY Chest (1 view); Complete Time: 20:21 [facility] 12/04 18:43 Order name: EKG; Complete Time: 18:44 norma 12/04 18:43 Order name: Cardiac monitoring; Complete Time: 19:04 [facility] 12/04 18:43 Order name: EKG - Nurse/Tech; Complete Time: 19:53 [facility] 12/04 18:43 Order name: IV Saline Lock; Complete Time: 19:04 [facility] 12/04 18:43 Order name: Labs collected and sent; Complete Time: 19:53 [facility] 12/04 18:43 Order name: CT Stroke Brain w/o Contrast; Complete Time: 19:26 [facility] 12/04 18:47 Order name: Brain Wo Cont; Complete Time: 19:53 EDMS 12/04 22:45 Order name: CONS Pharmacy Consult EDND 12/04 22:45 Order name: Renal EDND 12/04 22:45 Order name: CBC with Automated Diff EDMS 12/04 22:45 Order name: Comprehensive Metabolic Panel [facility] 12/04 22:45 Order name: Comprehensive Metabolic Panel [facility] 12/04 18:43 Order name: O2 Per Protocol; Complete Time: 19:26 [facility] 12/04 18:43 Order name: O2 Sat Monitoring; Complete Time: 19:26 [facility] 12/04 18:43 Order name: Urine Dipstick-Ancillary (obtain specimen); Complete Time: 20:28 [facility] Administered Medications: 20:00 Drug: NS 0.9% 1000 ml Route: IV; Rate: 1 bolus; Site: right antecubital; cc3 21:30 Follow up: Response: No adverse reaction; IV Status: Completed infusion; IV Intake: cc3 1000ml 20:00 Drug: foLIC Acid 1 mg Route: IVPB; Site: right hand; cc3 20:30 Follow up: Response: No adverse reaction; IV Status: Completed infusion cc3 Disposition: 12/05 07:02 Co-signature as Attending Physician, Antione Contreras MD I agree with the assessment and norma plan of care. Disposition: 12/04/18 21:20 Hospitalization ordered by Dave Danielle for Inpatient Admission. Preliminary diagnosis are 2nd degree AV block, Dehydration, Hyponatremia, TIA, Chest Pain. - Bed requested for Telemetry/MedSurg (Inpatient). - Status is Inpatient Admission. cc3 - Condition is Stable. - Problem is new. - Symptoms have improved. UTI on Admission? No Signatures: Dispatcher [employer] [facility] Antione Contreras MD MD cha Mickail, Joel, PA PA Yen Chiu, RN RN cg Nixon Salgado, RN RN Miryam Cobos cc3 Corrections: (The following items were deleted from the chart) 12/04 18:47 18:44 MR STROKE PROTOCOL+MRI.RAD.BRZ ordered. [facility] 22:52 21:20 Hospitalization Ordered by Dave Danielle MD for Inpatient Admission. Preliminary cg diagnosis is 2nd degree AV block; Dehydration; Hyponatremia; TIA; Chest Pain. Bed requested for Telemetry/MedSurg (Inpatient). Status is Inpatient Admission. Condition is Stable. Problem is new. Symptoms have improved. UTI on Admission? No. [facility] 23:47 22:52 12/04/2018 21:20 Hospitalization Ordered by Dave Danielle MD for Inpatient cc3 Admission. Preliminary diagnosis is 2nd degree AV block; Dehydration; Hyponatremia; TIA; Chest Pain. Bed requested for Telemetry/MedSurg (Inpatient). Status is Inpatient Admission. Condition is Stable. Problem is new. Symptoms have improved. UTI on Admission? No. cg
[2018-12-04] MEDS ORDERED: MORPHINE 2 MG/ML SYR IV PRN (22:34)
[2018-12-04] MEDS ORDERED: ACETAMINOPHEN 500 MG TAB PO PRN (22:34)
[2018-12-04] MEDS ORDERED: ONDANSETRON 4 MG/2 ML VIAL IV PRN (22:34)
[2018-12-04 22:35] LABS: Urine Blood NEGATIVE (NEG); Urine Glucose NEGATIVE (NEG); Urine Protein NEGATIVE (NEG); Urine pH 5.5 (5.0-7.0)
[2018-12-05 00:16] VITALS: BMI 41.8
[2018-12-05] MEDS: NA CHLORIDE 0.9% 1,000 ML IV SCH ×2 (00:17→12:50)
[2018-12-05 04:30] LABS: Absolute Lymphocytes (CBC) 0.8 K/uL (0.7-4.9); Absolute Monocytes 0.6 K/uL (0.1-1.3); Absolute Neutrophil 3.4 K/uL (1.8-8.0); Basophils % 0.6 % (0-1.3); Eosinophils % 2.6 % (0-4.4); Lymphocytes % 15.9 % (15.3-44.8); MPV 7.2 fL (7.6-11.3); Monocytes % 11.4 % (3.3-12.3); RBC Red Blood Cell Count 3.01 M/uL (4.33-5.43)
[2018-12-05 04:40] LABS: Albumin 3.4 g/dL (3.4-5.0); Bilirubin Total 0.4 mg/dL (0.2-1.0); Potassium 4.3 mmol/L (3.5-5.1); Protein, Total 6.5 g/dL (6.4-8.2)
[2018-12-05] MEDS ORDERED: DOCUSATE NA/SENNA CONC 1 TAB PO PRN (07:10)
[2018-12-05] MEDS ORDERED: HYDROCODONE/APAP 10/325 TAB PO PRN (07:10)
[2018-12-05] MEDS ORDERED: LORAZEPAM 1 MG TABLET PO PRN (07:10)
[2018-12-05] MEDS ORDERED: MECLIZINE HCL 12.5 MG TAB PO PRN (07:10)
[2018-12-05] MEDS ORDERED: TEMAZEPAM 15 MG CAP PO PRN (07:10)
[2018-12-05] MEDS ORDERED: HOME MED 1 EA UNK (Fentanyl [Fentanyl] 1 EACH) TD SCH (07:15)
--- NOTE | 2018-12-05 07:35 | P.HP ---
Certification for Inpatient Patient admitted to: Observation With expected LOS: <2 Midnights Patient will require the following post-hospital care: None Practitioner: I am a practitioner with admitting privileges, knowledge of patient current condition, hospital course, and medical plan of care. 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 He came into the hospital for left-sided weakness. This has started why he was relaxing. It became more severe so his daughter brought him into the emergency room for further evaluation. In the ER he had a CT of the brain as well as an MRI of the brain which were negative. His EKG revealed second-degree AV block Mobitz type 1. He is hemodynamically stable. He will be admitted to the hospital for further evaluation. I was notified by family that he was hospice and so will keep him in observation care. If he is stable today and he should be okay for discharge this afternoon. Allergies amoxicillin Allergy (Verified 02/08/18 02:32) Unknown azithromycin [From Zithromax] Allergy (Verified 02/08/18 02:32) Unknown Penicillins Allergy (Verified 02/08/18 02:32) Anaphylaxis Home Medications: Aspirin [Ginna Chewable Aspirin] 81 mg PO DAILY 01/14/16 Fluoxetine HCl [Prozac] 40 mg PO DAILY 01/14/16 Furosemide [Lasix*] 80 mg PO BID 01/14/16 Ranitidine HCl [Zantac] 300 mg PO BID 02/08/18 Triamcinolone 0.1% Crm [Kenalog 0.1% Cream*] 1 dontrell TOP PRN 05/27/18 Betameth AC,Na pH/R 134A,245Fa [Betaloan Suik Kit] 6 mg MC DAILY 12/05/18 Gabapentin 300 mg PO DAILY 12/05/18 Hydrocodone Bit/Acetaminophen [Hydrocodon-Acetaminophn 10-325] 1 tab PO Q4H PRN 12/05/18 Ibuprofen [Ibu] 600 mg PO TID PRN 12/05/18 Ipratropium/Albuterol Sulfate [Iprat-Albut 0.5-3(2.5) mg/3 ml] 3 ml IH BID 12/05 LORazepam [Ativan] 1 mg PO BID PRN 12/05/18 Meclizine HCl 25 mg PO Q6HP PRN 12/05/18 Metolazone [Zaroxolyn] 5 mg PO DAILY 12/05/18 Multivitamin [Multivitamins] 1 each PO DAILY 12/05/18 Sennosides/Docusate Sodium [Senna Plus Tablet] 1 each PO TID PRN 12/05/18 Spironolactone 50 mg PO BID 12/05/18 Temazepam [Restoril] 15 mg PO BEDTIME PRN 12/05/18 fentaNYL [Fentanyl] 1 each TD Q72H 12/05/18 predniSONE [Deltasone] 10 mg PO DAILY 12/05/18 - Past Medical/Surgical History Has patient received pneumonia vaccine in the past: Yes Diabetic: No -: Anemia -: Asthma -: HTN -: Lymphedema -: CHF -: Heart Attack -: Cellulitis -: Irregular Heartbeat -: Prostate Cancer (Radiation) -: Hypercholesterol -: Bone Cancer -: CKD Stage III -: Cardiac Stents - Family History Father Medical History: Heart disease Mother Medical History: Diabetes Brother Medical History: Heart disease Sister Medical History: Diabetes - Social History Smoking Status: Former smoker Alcohol use: Yes CD- Drugs: No Caffeine use: Yes Place of Residence: Home Review of Systems 10-point ROS is otherwise unremarkable Physical Examination - Vital Signs Temperature: 98.0 F Blood Pressure: 127/63 Pulse: 78 Respirations: 20 Pulse Ox (%): 96 - Physical Exam General: Alert, In no apparent distress, Oriented x3 HEENT: Atraumatic, PERRLA, Mucous membr. moist/pink, EOMI, Sclerae nonicteric Neck: Supple, 2+ carotid pulse no bruit, No LAD, Without JVD or thyroid abnormality Respiratory: Clear to auscultation bilaterally, Normal air movement Cardiovascular: Regular rate/rhythm, Normal S1 S2, No murmurs Gastrointestinal: Normal bowel sounds, Soft and benign, Non-distended, No tenderness Musculoskeletal: No clubbing, No swelling, No tenderness Integumentary: No rashes Neurological: Normal gait, Normal speech, Normal strength at 5/5 x4 extr, Normal tone, Sensation intact, Cranial nerves 3-12 intact, Normal affect Lymphatics: No axilla or inguinal lymphadenopathy - Studies Laboratory Data (last 24 hrs) 12/04/18 18:00: PT 11.1, INR 0.94 12/04/18 18:00: WBC 5.6, Hgb 9.6 L, Hct 29.2 L, Plt Count 233 12/04/18 18:00: Sodium 128 L, Potassium 4.8, BUN 41 H, Creatinine 1.55 H, Glucose 83, Magnesium 2.4, Total Bilirubin 0.5, AST 33, ALT 28, Alkaline Phosphatase 758 H, Lipase 150 Assessment & Plan - Problems (Diagnosis) (1) Prostate cancer metastatic to bone Current Visit: Yes Status: Acute (2) Left-sided weakness Current Visit: Yes Status: Acute (3) Asthma Current Visit: No Status: Acute (4) CAD (coronary artery disease) Onset Date: 02/08/18 Current Visit: No Status: Acute (5) CHF (congestive heart failure) Current Visit: No Status: Acute (6) COPD exacerbation Onset Date: 02/10/16 Current Visit: No Status: Acute (7) Chronic acquired lymphedema Onset Date: 02/10/16 Current Visit: No Status: Acute (8) Diabetes Current Visit: No Status: Acute (9) History of heart artery stent Current Visit: No Status: Acute (10) Hyperlipidemia Onset Date: 02/10/16 Current Visit: No Status: Acute (11) Hypertension Onset Date: 02/10/16 Current Visit: No Status: Acute Qualifiers: - Plan Plan: 1. Gentle hydration 2. Supportive care 3. Transition back to hospice this afternoon as long as he is hemodynamically stable and no signs of progression of his left-sided weakness 4. Diet as tolerated 5. GI and DVT prophylaxis Discharge Plan: Other Plan to discharge in: 24 Hours - Advance Directives Does patient have a Living Will: No Does patient have a Durable POA for Healthcare: Yes - Code Status/Comfort Care Code Status Assessed: Yes Code Status: Full Code Comfort Measures: Hospice Care Critical Care: No Time Spent Managing PTS Care (In Minutes): 40
[2018-12-05] MEDS ORDERED: ALBUTEROL 2.5 MG/3 ML NEB SOL IH SCH (08:00)
[2018-12-05] MEDS ORDERED: IPRATROPIUM BROM 0.5MG/2.5ML IH SCH (08:00)
[2018-12-05] MEDS ORDERED: [UNRECOGNIZED DRUG - OTHER] MC SCH (09:00)
[2018-12-05] MEDS ORDERED: GABAPENTIN 300 MG CAP PO SCH (09:00)
[2018-12-05] MEDS ORDERED: RANITIDINE 150 MG TABLET PO SCH (09:00)
[2018-12-05] MEDS ORDERED: FLUOXETINE 20 MG CAP PO SCH (09:00)
[2018-12-05] MEDS ORDERED: FUROSEMIDE 40 MG TABLET PO SCH (09:00)
[2018-12-05] MEDS ORDERED: predniSONE 10 MG TAB PO SCH (09:00)
[2018-12-05] MEDS ORDERED: HOME MED 1 EA UNK (Ipratropium/Albuterol Sulfate [Iprat-Albut 0.5-3(2.5) Mg/3 Ml] 3 ML) IH SCH (09:00)
[2018-12-05] MEDS ORDERED: MULTIVIT W/ MINERAL TAB PO SCH (09:00)
[2018-12-05] MEDS ORDERED: SPIRONOLACTONE 25 MG TABLET PO SCH (09:00)
[2018-12-05] MEDS ORDERED: METOLAZONE 5 MG TABLET PO SCH (09:00)
[2018-12-05] MEDS ORDERED: ASPIRIN 81 MG CHEWABLE TABLET PO SCH (09:00)
--- NOTE | 2018-12-05 09:16 | EKG ---
Test Date: 2018-12-04 Test Time: 19:45:34 Change Management Administrator: [id number] MEASUREMENT RESULTS: Intervals: Rate: 64 NV: QRSD: 146 QT: 456 QTc: 470 [place]: P: 39 NV: QRS: -51 T: 34 INTERPRETIVE STATEMENTS: Sinus rhythm with 2nd degree AV block (Mobitz I) Right bundle branch block Left anterior fascicular block Bifascicular block Possible Lateral infarct, age undetermined Inferior infarct, age undetermined Abnormal ECG Compared to ECG 05/27/2018 09:33:18 Left anterior fascicular block now present Bifascicular block now present Ventricular premature complex(es) no longer present First degree AV block no longer present Left-axis deviation no longer present Myocardial infarct finding still present Electronically Signed On 12-05-18 09:16:00 CDT by Heladio Hernandez
[2018-12-05 12:18] VITALS: BP 103/52; TEMP 97
[2018-12-05 12:28] VITALS: O2SAT 98
[2018-12-05] MEDS ORDERED: TRIAMCINOLONE 0.1% TOP PRN (14:00)
== END 2018-12-05 15:37 | disposition hospice, home (50) ==
LOC: ER 17:53 → INTOOBSV 23:27 → 4TH 23:27
PROVIDERS: ADMIT Hospitalist; ATTEND Hospitalist
DX: R53.1 Weakness (principal); I13.0 Hypertensive heart and chronic kidney disease with heart failure and stage 1 through stage 4 chronic kidney disease, or unspecified chronic kidney disease; I50.9 Heart failure, unspecified; N18.3 Chronic kidney disease, stage 3 (moderate); E11.22 Type 2 diabetes mellitus with diabetic chronic kidney disease; J45.909 Unspecified asthma, uncomplicated; I25.10 Atherosclerotic heart disease of native coronary artery without angina pectoris; J44.9 Chronic obstructive pulmonary disease, unspecified; E78.5 Hyperlipidemia, unspecified; I44.1 Atrioventricular block, second degree; Z85.46 Personal history of malignant neoplasm of prostate; Z95.5 Presence of coronary angioplasty implant and graft; Z88.0 Allergy status to penicillin; Z79.82 Long term (current) use of aspirin; Z85.830 Personal history of malignant neoplasm of bone
CPT/HCPCS: 96365; 96361; 93005; 87088; 85025 ×2; 80048; 36415; 86900; 83735; 86850; 85610; 86901; 80076; 85652; 81003; 84484; 83690; 80053; 83880; 86140; 70450; 71045; 70551; 99285; J7030 ×3; J2405; G0378 ×2; 87086; J7512